=== PATIENT | male | born 1975 | race Caucasian/White ===

== ENCOUNTER 2017-11-05 18:51 | Inpatient (IN) ==
--- OUTSIDE RECORDS SUMMARY | 2017-11-05 19:16 | External Medical Summary | Encounter Summary ---
:1975 Author Organization [facility] Address [address] [address] Care Team Providers Name Role Phone Blake Wilkinson MD Primary Care Provider Unavailable Encounter Details Date Type Department Care Team Description 09/18/2017 Lab Visit [facility] Laboratory - Chronic myeloid leukemia [place] ([facility]) [address] [place] [address] Social History Tobacco Use Types Packs/Day Years Used Date Former Smoker Smokeless Tobacco: Never Used Comments: Smoking History Packs/day: Daily/Cigarettes/6 cigarettes Alcohol Use Drinks/Week oz/Week Comments Yes 6 pack of beer/month Sex Assigned at Date Recorded Not on file as of this encounter Plan of Treatment Upcoming Encounters Date Type Specialty Care Team Description 12/13/2017 Office Visit Internal Medicine Blake Wilkinson MD [address] [address] as of this encounter Results Vitamin D2/D3 Total (09/16/2017 4:25 PM) Component Value Ref Range Vitamin D2/D3 Total 16 (L) 30 - 100 ng/ml Specimen Performing Laboratory Blood [facility] [address] [place] [address] Narrative < 20 ng/mL Deficiency 20- 30 ng/mL Insufficiency 30-100 ng/mL Sufficiency > 100ng/mL Consider toxicity Thereference range for total Vitamin D, 25-Hydroxy is based on correlation with parameters that include PTH concentration and calcium absorption.The range is not based on the distribution of levels in an apparently healthy population. Please note new methodology and reference range. in this encounter Visit Diagnoses Diagnosis Chronic myeloid leukemia (HCC) Chronic myeloid leukemia, without mention of having achieved remission
--- OUTSIDE RECORDS SUMMARY | 2017-11-05 19:16 | External Medical Summary | Encounter Summary ---
:1975 Author Organization [facility] Address [address] [address] Care Team Providers Name Role Phone Blake Wilkinson MD Primary Care Provider Unavailable Encounter Details Date Type Department Care Team Description 10/11/2017 Orders Only MULTIPLE TESTS Link, Onbase [place], [place] Social History Tobacco Use Types Packs/Day Years [...] Internal Medicine Blake Wilkinson MD [address] [place] [address] Pending Results Name Priority Associated Diagnoses Date/Time HM EXTERNAL ULTRASOUND 10/01/2017 12:00 AM CDT as of this encounter Visit Diagnoses Not on filein this encounter
--- OUTSIDE RECORDS SUMMARY | 2017-11-05 19:16 | External Medical Summary | Encounter Summary ---
:1975 Author Organization [facility] Address [address] [address] Care Team Providers Name Role Phone Blake Wilkinson MD Primary Care Provider Unavailable Reason for Visit Reason Comments Medication Refill Encounter Details Date Type Department Care Team Description 10/15/2017 Refill Cotton O`Eh Internal Blake Wilkinson Medication Refill Medicine - [place] Armendariz MD [address] [place] [address] [place] [address] [phone] Social History Tobacco Use Types Packs/Day Years [...] Medicine Blake Wilkinson MD [address] [place] [address] [phone] as of this encounter Visit Diagnoses Not on filein this encounter
--- OUTSIDE RECORDS SUMMARY | 2017-11-05 19:16 | External Medical Summary | Encounter Summary ---
:1975 Author Organization [facility] Address [address] [address] Care Team Providers Name Role Phone Blake Wilkinson MD Primary Care Provider Unavailable Encounter Details Date Type Department Care Team Description 09/20/2017 Orders Only [facility] Lab[facility] Leukemia, chronic Laboratory - [place] myelogenous (HCC) [address] (Primary Dx) [place] [address] Social History Tobacco Use Types Packs/Day [...] Blake Wilkinson MD [address] [address] Scheduled Tests Name Priority Associated Diagnoses Order Schedule CBC and differential Routine Leukemia, chronic myelogenous Expected: 2017, (HCC) Expires: 10/04/2018 as of this encounter Results CBC and differential (10/18/2017 1:31 PM) Specimen Performing Laboratory Blood Narrative The following orders were created for panel order CBC and differential. Procedure Abnormality Status --------- ------ CBC auto differential[[id number]]NormalFinal result Please view results for these tests on the individual orders. in this encounter Visit Diagnoses Diagnosis Leukemia, chronic myelogenous (HCC) - Primary Chronic myeloid leukemia, without mention of having achieved remission
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
--- OUTSIDE RECORDS SUMMARY | 2017-11-05 19:16 | External Medical Summary | Encounter Summary ---
:1975 Author Organization [facility] Address [address] [address] Care Team Providers Name Role Phone Blake Wilkinson MD Primary Care Provider Unavailable Encounter Details Date Type Department Care Team Description 09/23/2017 Orders Only Cotton Nessa`Eh Internal Blake Wilkinson Low vitamin D level Medicine - [place] Armendariz MD (Primary Dx) [address] [place] [address] [address] [place] [id number] Social History Tobacco Use Types Packs/Day Years [...] MD [address] [place] [address] [phone] Scheduled Tests Name Priority Associated Diagnoses Order Schedule Vitamin D2/D3 Total Routine Low vitamin D level Expected: 12/23/2017 ( Approximate), Expires: 11/23/2018 as of this encounter Visit Diagnoses Diagnosis Low vitamin D level - Primary
--- OUTSIDE RECORDS SUMMARY | 2017-11-05 19:16 | External Medical Summary | Encounter Summary ---
:1975 Author Organization [facility] Address [address] [address] Care Team Providers Name Role Phone Blake Wilkinson MD Primary Care Provider Unavailable Reason for Visit Reason Comments Question Encounter Details Date Type Department Care Team Description 11/05/2017 Telephone Newton Shrestha Internal Blake Wilkinson, Question Medicine - [place] HAMMER [address] [place] [address] [place] [id number] Social History Tobacco Use Types Packs/Day Years [...] [address] [place] [id number] as of this encounter Visit Diagnoses Not on filein this encounter
--- OUTSIDE RECORDS SUMMARY | 2017-11-05 19:16 | External Medical Summary | Encounter Summary ---
:1975 Author Organization [facility] Address [address] [address] Care Team Providers Name Role Phone Blake Wilkinson MD Primary Care Provider Unavailable Encounter Details Date Type Department Care Team Description 10/18/2017 Lab Visit [facility] Laboratory - Leukemia, chronic [place] myelogenous (HCC) [address] [place] [address] Social History Tobacco Use Types Packs/Day [...] Medicine Blake Wilkinson MD [address] [address] as of this encounter Results CBC auto differential (10/18/2017 1:31 PM) Component Value Ref Range WBC 6.0 3.5 [...] - 0.30 10E9/L Specimen Performing Laboratory Blood [facility] [address] [place] [address] CBC and differential (10/18/2017 1:31 PM) Specimen Performing Laboratory Blood Narrative The following orders were created for panel order CBC and differential. Procedure Abnormality Status --------- ------ CBC auto differential[[id number]]NormalFinal result Please view results for these tests on the individual orders. in this encounter Visit Diagnoses Diagnosis Leukemia, chronic myelogenous (HCC) Chronic myeloid leukemia, without mention of having achieved remission
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
--- OUTSIDE RECORDS SUMMARY | 2017-11-05 19:17 | External Medical Summary | Encounter Summary ---
:1975 Author Organization [facility] Address [address] [address] Care Team Providers Name Role Phone Blake Wilkinson MD Primary Care Provider Unavailable Encounter Details Date Type Department Care Team Description 09/02/2017 Lab Visit [facility] [address] [place] [address] Social History Tobacco Use Types [...] Medicine Blake Wilkinson MD [address] [facility] [address] [place] [address] as of this encounter Results CBC auto differential (09/02/2017 1:05 PM) Component Value Ref Range WBC 7.6 3.5 - 10.5 10E9/L RBC 4.90 4.32 - 5.72 10E12/L Hemoglobin 14.5 13.5 - 17.5 g/dL Hematocrit 44.3 38.8 - 50.0 % MCV 90.5 81.2 - 95.1 fL MCH 29.5 26.0 - 34.0 pg MCHC 32.6 31.0 - 37.0 g/dL RDW 13.1 11.8 - 15.6 % Platelets 309 150 - 450 10E9/L Neutrophils % 83.7 (H) 40.0 - 75.0 % Lymphocytes % 12.5 (L) 22.0 - 49.0 % Monocytes % 3.5 2.0 - 9.0 % Eosinophils % 0.1 <=5.0 % Basophils % 0.2 0.0 - 2.5 % Neutrophils Absolute 6.40 1.70 - 7.00 10E9/L Lymphocytes Absolute 0.90 0.90 - 2.90 10E9/L Monocytes Absolute 0.30 0.30 - 0.90 10E9/L Absolute Eosinophils 0.00 (L) 0.05 - 0.50 10E9/L Basophils Absolute 0.00 0.00 - 0.30 10E9/L Specimen Performing Laboratory Blood [facility] [address] [facility] [address] [place] [address] Comprehensive metabolic panel (09/02/2017 1:05 PM) Component Value Ref Range Albumin 3.3 (L) 3.4 - 5.0 g/dL Alkaline Phosphatase 89 46 - 116 U/L ALT 60 16 - 63 U/L AST 43 (H) 15 - 37 U/L Total Bilirubin 0.2 0.2 - 1.0 mg/dL BUN, Bld 15 7 - 18 mg/dL Calcium 8.5 (L) 8.8 - 10.1 mg/dL Chloride 103 98 - 107 mmol/L Creatinine 1.15 0.70 - 1.30 mg/dL Glucose 226 (H) 74 - 106 mg/dL Potassium 3.7 3.5 - 5.1 mmol/L Total Protein 7.1 6.4 - 8.2 g/dL Sodium 140 136 - 145 mmol/L CO2 28 21 - 32 mmol/L Anion Gap 9 eGFR >59 >59 mL/min Specimen Performing Laboratory Blood [facility] [address] [facility] [address] [place] [address] CBC and differential (09/02/2017 1:05 PM) Specimen Performing Laboratory Blood Narrative The following orders were created for panel order CBC and differential. Procedure Abnormality Status --------- ------ CBC auto differential[[id number]]Abnormal Final result Please view results for these tests on the individual orders. Influenza A/B Antigens, Rapid (09/02/2017 1:00 PM) Component Value Ref Range Influenza A Antigen Test Negative Negative Influenza B Antigen Test Negative Negative Specimen Performing Laboratory Nasopharyngeal - Nasopharyngeal Swab [facility] [address] [place] [address] [place] [address] in this encounter Visit Diagnoses Diagnosis Weakness Other malaise and fatigue
--- OUTSIDE RECORDS SUMMARY | 2017-11-05 19:17 | External Medical Summary | Encounter Summary ---
:1975 Author Organization [facility] Address [address] [address] Care Team Providers Name Role Phone Blake Wilkinson MD Primary Care Provider Unavailable Reason for Visit Reason Comments Progress Report Encounter Details Date Type Department Care Team Description 09/02/2017 Telephone Newton Shrestha Internal Blake Wilkinson Progress Report Medicine - [place] Armendariz MD [address] [facility] [address] [address] [place], [place] [address] Social History Tobacco Use Types Packs/Day Years [...] Blake Wilkinson MD [address] [facility] [address] [place] [address] [phone] as of this encounter Results Comprehensive metabolic panel (09/02/2017 1:05 PM) Component [...] mL/min Specimen Performing Laboratory Blood [facility] [address] [facility] [address] [place] [address] CBC and differential (09/02/2017 1:05 PM) Specimen Performing Laboratory Blood Narrative The following orders were created for panel order CBC and differential. Procedure Abnormality Status --------- ------ CBC auto differential[[id number]]Abnormal Final result Please view results for these tests on the individual orders. Influenza A/B Antigens, Rapid (09/02/2017 1:00 PM) Component Value Ref Range Influenza A Antigen Test Negative Negative Influenza B Antigen Test Negative Negative Specimen Performing Laboratory Nasopharyngeal - Nasopharyngeal Swab [facility] [address] [facility] [address] [place] [address] in this encounter Visit Diagnoses Diagnosis Weakness - Primary Other malaise and fatigue
--- OUTSIDE RECORDS SUMMARY | 2017-11-05 19:17 | External Medical Summary | Encounter Summary ---
:1975 Author Organization [facility] Address [address] [address] Care Team Providers Name Role Phone Blake Wilkinson MD Primary Care Provider Unavailable Reason for Visit Reason Comments Cough Fatigue Shortness of Breath Encounter Details Date Type Department Care Team Description 09/06/2017 Office Visit Blake Hendricks Lower respiratory infection; Internal Medicine - [place] Marcello Moderate persistent extrinsic asthma without complication [place] [address] [place] [address] [place] [address] [place] [address] [phone] Social History Tobacco Use Types Packs/Day Years Used Date Former Smoker Smokeless Tobacco: Never Used Comments: Smoking History Packs/day: Daily/Cigarettes/6 cigarettes Alcohol Use Drinks/Week oz/Week Comments Yes 6 pack of beer/month Sex Assigned at Date Recorded Not on file as of this encounter Last Filed Vital Signs Vital Sign Reading Time Taken Blood Pressure 128/80 09/06/2017 8:38 AM CDT Pulse 75 09/06/2017 8:38 AM CDT Temperature 37.1 C (98.8 F) 09/06/2017 8:38 AM CDT Respiratory Rate 18 09/06/2017 8:38 AM CDT Oxygen Saturation 98% 09/06/2017 8:38 AM CDT Inhaled Oxygen Concentration - - Weight 90.7 kg (200 lb) 09/06/2017 8:38 AM CDT Height 180.3 cm (5' 11") 09/06/2017 8:38 AM CDT Body Mass Index 27.89 09/06/2017 8:38 AM CDT in this encounter Progress Notes Blkae Wilkinson MD - 09/06/2017 8:30 AM CDTFormatting of this note may be different from the original. [facility] [address] [place] [address] 09/06/2017 Patient: Jann Hernandez : 1975 Primary Care Provider: Blake Wilkinson MD Subjective Chief Complaint Patient presents with Cough Fatigue Shortness of Breath Jann is a 41 y.o. male who had concerns including Cough; Fatigue; and Shortness of Breath. Cough This patient was seen, 08/30/17 with: The current episode started in the past 7 days. The problem hasbeen gradually worsening. The problem occurs every few minutes. The cough is productive of purulent sputum. Associated symptoms include chest pain, a fever, nasal congestion, postnasal drip, a sore throat and shortness of breath. Treatments tried: steroids. The treatment provided no relief. His past medical history is significant for asthma. He is here for follow-up today. He still has no energy. He still feels like he is struggling to breathe. He has not had a fever in 5 days. He continues to cough up white-yellow sputum. He finishesthe augmentin on Saturday and prednisone on Saturday. He felt better after IVF but then ill again the next day. His flu swab was negative. Outpatient Prescriptions Marked as Taking for the 09/06/17 encounter (Office Visit) with Blake Wilkinson MD Medication Sig albuterol (PROAIR HFA) 108 (90 BASE) MCG/ACT inhaler inhale 2 puff by inhalation route every 4 - 6 hours for breathing amoxicillin-clavulanate (AUGMENTIN) 875-125 MG Take 1 tablet by mouth 2 (two ) times daily. budesonide-formoterol (SYMBICORT) 160-4.5 MCG/ACT inhaler Inhale 2 [...] tablet Take 10 mg by mouth daily. predniSONE (DELTASONE) 10 MG tablet Take 40 mg X 3 days, then 30 mg X 3 days , then 20 mg X 3 days, then 10 mg X 3 days. #30 Allergies Allergen Reactions Doxycycline Monohydrate GI distress DOXYCYCLINE Past Medical History: Diagnosis Date Anxiety Escitalopram restarted, 07/25/09. He is doing well on it currently. Wellbutrin did not work. Effexor did not help. Asthma Cat allergies Chronic myeloid leukemia in remission ([facility]) 04/29/2005 Chronic Myelogenous Leukemia. Dx 05/09/05 by bone marrow biopsy by Dr. Baer. In remission on gleevec. CML (chronic myelocytic leukemia) ([facility]) Gleevec since 2004 Depression Encounter for other specified special examinations [id number] - [facility]: Viral gastroenteritis, Dehydration, resolved, Nausea and vomiting, [...] this time. RBBB (right bundle branch block) Patient's medications, allergies, past medical, surgical, social and family histories were reviewed and updated as appropriate. Review of Systems Constitutional: Positive for activity change, appetite change and fatigue. Negative for fever and unexpected weight change. Respiratory: Positive for cough, chest tightness and shortness of breath. Cardiovascular: Negative for leg swelling. Objective Visit Vitals BP 128/80 Pulse 75 Temp 98.8 F (37.1 C) Resp 18 Ht 5' 11" (1.803 m) Wt 200 lb (90.7 kg) SpO2 98% BMI 27.89 kg/m Physical Exam Constitutional: He is oriented to person, place, and time. He appears well- developed and well-nourished. HENT: Head: Atraumatic. Right Ear: External ear normal. Left Ear: External ear normal. Nose: No mucosal edema. Mouth/Throat: Mucous membranes are normal. Posterior oropharyngeal erythema present. No oropharyngeal exudate or posterior oropharyngeal edema. Neck: Normal range of motion. Neck supple. Cardiovascular: Normal rate, regular rhythm and normal heart sounds. Pulmonary/Chest: Effort normal. No respiratory distress. He has no wheezes. Neurological: He is alert and oriented to person, place, and time. Assessment/Plan 1. Lower respiratory infection Assessment & Plan: He has not improved clinically. His lab has been negative including flu swab. If not better next week, reimage chest and check mono, CMV. 2. Moderate persistent extrinsic asthma without complication Assessment & Plan: He will continue inhalers. Return call with progress on Saturday. Blake Wilkinson MD Electronic Signature 09/06/2017 9:01 AM Taiwo Dasilva MA - 09/06/2017 8:30 AM CDTPt went and did the IV fluids. He felt awesome after that and his sore throat went away and his chest felt better. When he woke up he felt worse. He feels like his breathing is labored and still has a lot of phlegm and no energy. He has not had a fever for 5 days. He is done w/ the antibiotic Saturday and will be done w/ the prednisone on Saturday. He has been using Claritin. He has been drinking water and Gatorade. He has been using the inhalers. Pt has had the chicken pox. Says he is due for the chicken pox shot.in this encounter Plan of Treatment Upcoming Encounters Date Type Specialty Care Team Description 12/13/2017 Office Visit Internal Medicine Blake Wilkinson MD [address] [place] [address] [place] [address] as of this encounter Visit Diagnoses Diagnosis Lower respiratory infection Other diseases of respiratory system, not elsewhere classified Moderate persistent extrinsic asthma without complication
--- OUTSIDE RECORDS SUMMARY | 2017-11-05 19:17 | External Medical Summary | Encounter Summary ---
:1975 Author Organization [facility] Address [address] [address] Care Team Providers Name Role Phone Blake Wilkinson MD Primary Care Provider Unavailable Encounter Details Date Type Department Care Team Description 09/16/2017 Orders Only On License Of [facility] Trish Laboy Chronic myeloid leukemia (HCC) (Primary Dx); Laboratory - [place] Chronic myeloid leukemia in remission (HCC) [address] [place] [address] Social History Tobacco Use Types Packs/Day [...] Medicine Blake Wilkinson MD [address] [address] as of this encounter Results Comprehensive metabolic panel (09/16/2017 4:28 PM) Component Value Ref Range Albumin 3.7 3.4 [...] >59 >59 mL/min Specimen Performing Laboratory Blood [facility] [address] [place] [address] [place] [address] CBC and differential (09/16/2017 4:28 PM) Specimen Performing Laboratory Blood Narrative The following orders were created for panel order CBC and differential. Procedure Abnormality Status --------- ------ CBC auto differential[[id number]]Abnormal Final result Please view results for these tests on the individual orders. in this encounter Visit Diagnoses Diagnosis Chronic myeloid leukemia (HCC) - Primary Chronic myeloid leukemia, without mention of having achieved remission Chronic myeloid leukemia in remission (HCC) Chronic myeloid leukemia in remission
--- OUTSIDE RECORDS SUMMARY | 2017-11-05 19:17 | External Medical Summary | Continuity of Care Document ---
:1975 Author Organization [facility] Address [address] [place] [address] Care Team Providers Name Role Phone Zoey Wilkinson Primary Care Physician Víctor Mccracken Attending Physician Allergies, Adverse Reactions, Alerts Allergen Type Severity Reaction Last Updated Verified Status doxycycline Adverse Reaction Unknown GI DISTRESS May 23, 2017 N Active Medications No medication information available. Problem List No problem information available. Procedures Procedure Date Status US abdomen limited October 01, 2017 completed Relevant Diagnostic Tests and/or Laboratory Data No known relevant diagnostic tests, laboratory data, and/or discharge summary. Advance Directives Advance Directive Response Recorded Date/Time Advance Directive on File? GIVEN June 13, 2017 3:52pm Chief Complaint and Reason for Visit Encounter Admit Date Chief Complaint Reason for Visit Departed Clinical October 01, 2017 8:37am chronic myelogenous leukemia Hospital Discharge Instructions No known hospital discharge instructions. Encounters Encounter Facility Location Admit/Visit Discharge/Departure Attending Date Date Provider Departed [facility] October 01, 2017 October 01, 2017 8:38am [facility] 8:37am [facility] Departed [facility] September 30, 2017 September 30, 2017 3:35pm [facility] 3:34pm [facility] Functional Status No known functional status. Immunizations No known immunizations. Payers Payer Name Policy Type Covered Covered Relationship Subscriber Subscriber Id Green Party Green Party Id [employer] [id number] [facility] Self Pay Plan of Care No Known Plan of Care Information Social History No known social history. Vital Signs No known vital signs results.
--- OUTSIDE RECORDS SUMMARY | 2017-11-05 19:17 | External Medical Summary | Encounter Summary ---
:1975 Author Organization [facility] Address [address] [address] Care Team Providers Name Role Phone Blake Wilkinson MD Primary Care Provider Unavailable Encounter Details Date Type Department Care Team Description 09/18/2017 Orders Only Cotton O`Eh Internal Blake Wilkinson Chronic myeloid Medicine - [place] Armendariz MD leukemia (HCC) [address] (Primary Dx) [place] [address] [address] [place], [place] [id number] Social History Tobacco Use Types Packs/Day Years [...] MD [address] [place], [place] [id number] as of this encounter Results Vitamin D2/D3 Total (09/16/2017 4:25 PM) Component Value Ref Range Vitamin D2/D3 Total 16 (L) 30 - 100 ng/ml Specimen Performing Laboratory Blood [facility] [address] [place] [address] Narrative < 20 ng/mL Deficiency 20- 30 [...]
--- OUTSIDE RECORDS SUMMARY | 2017-11-05 19:17 | External Medical Summary | Encounter Summary ---
:1975 Author Organization [facility] Address [address] [address] Care Team Providers Name Role Phone Blake Wilkinson MD Primary Care Provider Unavailable Reason for Visit Reason Comments Clarification On Medication Cecilia at pharmacy needs help with prescription Encounter Details Date Type Department Care Team Description 08/28/2017 Nurse Triage [facility] Elisa Carrion Connect RN [address] [address] Social History Tobacco Use Types Packs/Day Years Used Date Former Smoker Smokeless Tobacco: Never Used Comments: Smoking History Packs/day: Daily/Cigarettes/6 cigarettes Alcohol Use Drinks/Week oz/Week Comments No Sex Assigned at Date Recorded Not on file as of this encounter Progress Notes Elisa Carrino RN - 08/28/2017 6:39 PM CDTFormatting of this note may be different from the original. Pharmacist Ceciila kendall, states patient was expecting a rx. They did not have one sent to pharmacy today. Per chart review" Conversation: Cough (Newest Message First) Blake Wilkinson MD to Shona Pinon RN 08/28/17 3:55 PM Note He can see Romy Danutather or I can have him take Prednisone 40mg po every day x 3 days then 30mg po every day x 3 days then 20 mg po every day x 3 days then 10 mg po every day x 3 days." [address] Irene Wilkinson / Juancarlos Carrion RN. Rx called into in [place]. Spoke with Cecilia [facility], Who verbally verifies rx. Dispensed 10 mg tabs. #30.in this encounter Plan of Treatment Upcoming Encounters Date Type Specialty Care Team Description 12/13/2017 Office Visit Internal Medicine Blake Wilkinson MD [address] [place] [address] as of this encounter Visit Diagnoses Not on filein this encounter
--- OUTSIDE RECORDS SUMMARY | 2017-11-05 19:17 | External Medical Summary | Encounter Summary ---
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) [address] [place] [address] Social History Tobacco Use Types [...] Medicine Blake Wilkinson MD [address] [place] [address] as of this encounter Results CBC auto differential (09/16/2017 4:28 PM) Component Value Ref Range WBC 7.7 3.5 - 10.5 10E9/L RBC 4.57 4.32 - 5.72 10E12/L Hemoglobin 13.4 (L) 13.5 - 17.5 g/dL Hematocrit 41.0 38.8 - 50.0 % MCV 89.8 81.2 - 95.1 fL MCH 29.4 26.0 - 34.0 pg MCHC 32.8 31.0 - 37.0 g/dL RDW 13.3 11.8 - 15.6 % Platelets 289 150 - 450 10E9/L Neutrophils % 59.1 40.0 - 75.0 % Lymphocytes % 28.3 22.0 - 49.0 % Monocytes % 10.3 (H) 2.0 - 9.0 % Eosinophils % 1.3 <=5.0 % Basophils % 1.0 0.0 - 2.5 % Neutrophils Absolute 4.50 1.70 - 7.00 10E9/L Lymphocytes Absolute 2.20 0.90 - 2.90 10E9/L Monocytes Absolute 0.80 0.30 - 0.90 10E9/L Absolute Eosinophils 0.10 0.05 - 0.50 10E9/L Basophils Absolute 0.10 0.00 - 0.30 10E9/L Specimen Performing Laboratory Blood [facility] [address] [address] Comprehensive metabolic panel (09/16/2017 4:28 PM) Component [...] [facility] [address] [facility] [address] [place] [address] CBC and differential (09/16/2017 4:28 PM) Specimen Performing Laboratory Blood Narrative The following orders were created for panel order CBC and differential. Procedure Abnormality Status --------- ------ CBC auto differential[[id number]]Abnormal Final result Please view results for these tests on the individual orders. EXTRA SST TUBE (09/16/2017 4:25 PM) Component Value Ref Range EXTRA TUBE Extra tube in lab Specimen Performing Laboratory Blood [facility] [address] [place] [address] Extra Tubes (09/16/2017 4:25 PM) Specimen Performing Laboratory Blood Narrative The following orders were created for panel order Extra Tubes. Procedure Abnormality Status --------- ------ EXTRA SST TUBE[[id number]] Final result Please view results for these tests on the individual orders. in this encounter Visit Diagnoses Diagnosis Chronic myeloid leukemia (HCC) Chronic myeloid leukemia, without mention of having achieved remission Chronic myeloid leukemia in remission (HCC) Chronic myeloid leukemia in remission
--- OUTSIDE RECORDS SUMMARY | 2017-11-05 19:17 | External Medical Summary | Encounter Summary ---
:1975 Author Organization [facility] Address [address] [address] Care Team Providers Name Role Phone Blake Wilkinson MD Primary Care Provider Unavailable Reason for Visit Reason Comments Progress Report Letter for School/Work Encounter Details Date Type Department Care Team Description 09/09/2017 Telephone [facility] Szymanski[facility]Eh Internal Blake Wilkinson Progress Report ; Letter Medicine - [place] Armendariz MD for School/Work [address] [facility] [place] [address] [address] [place] [id number] Social History Tobacco Use Types Packs/Day Years [...] [address] [facility] [address] [place] [address] [phone] as of this encounter Visit Diagnoses Not on filein this encounter
--- OUTSIDE RECORDS SUMMARY | 2017-11-05 19:17 | External Medical Summary | Encounter Summary ---
:1975 Author Organization [facility] Address [address] [address] Care Team Providers Name Role Phone Blake Wilkinson MD Primary Care Provider Unavailable Encounter Details Date Type Department Care Team Description 09/03/2017 Orders Only Cotton O`Eh Internal Blake Wilkinson Medicine - [place] Armendariz MD [address] [place] [address] [place] [address] [phone] Social History Tobacco Use Types Packs/Day Years [...] MD [address] [place], [place] [address] as of this encounter Visit Diagnoses Not on filein this encounter
--- OUTSIDE RECORDS SUMMARY | 2017-11-05 19:17 | External Medical Summary | Encounter Summary ---
:1975 Author Organization [facility] Address [address] [address] Care Team Providers Name Role Phone Blake Wilkinson MD Primary Care Provider Unavailable Reason for Visit Reason Comments Shortness of Breath Cough Productive Sore Throat Encounter Details Date Type Department Care Team Description 08/30/2017 Office Visit [facility] Szymanski[facility] Internal Blake Wilkinson Acute URI Medicine - [place] Armendariz MD [address] [place] [address] [place] [address] [phone] Social History Tobacco Use Types Packs/Day Years Used Date Former Smoker Smokeless Tobacco: Never Used Comments: Smoking History Packs/day: Daily/Cigarettes/6 cigarettes Alcohol Use Drinks/Week oz/Week Comments Yes 6 pack of beer/month Sex Assigned at Date Recorded Not on file as of this encounter Last Filed Vital Signs Vital Sign Reading Time Taken Blood Pressure 132/80 08/30/2017 1:21 PM CDT Pulse 84 08/30/2017 1:21 PM CDT Temperature 37.1 C (98.8 F) 08/30/2017 1:21 PM CDT Respiratory Rate 18 08/30/2017 1:21 PM CDT Oxygen Saturation 96% 08/30/2017 1:21 PM CDT Inhaled Oxygen Concentration - - Weight 91.1 kg (200 lb 14.4 oz) 08/30/2017 1:21 PM CDT Height 180.3 cm (5' 11") 08/30/2017 1:21 PM CDT Body Mass Index 28.02 08/30/2017 1:21 PM CDT in this encounter Progress Notes Blake Wilkinson MD - 08/30/2017 1:15 PM CDTFormatting of this note may be different from the original. [facility] [address] [place] [address] 08/30/2017 Patient: Jann Hernandez : 1975 Primary Care Provider: Blake Wilkinson MD Subjective Chief Complaint Patient presents with Shortness of Breath Cough Productive Sore Throat Jann is a 41 y.o. male who had concerns including Shortness of Breath; Cough ( Productive); and Sore Throat. Cough This is a new problem. The current episode started in the past 7 days. The problem has been gradually worsening. The problem occurs every few minutes. The cough is productive of purulent sputum. Associated symptoms include chest pain, a fever, nasal congestion, postnasal drip, a sore throat and shortness of breath. Treatments tried: steroids. The treatment provided no relief. His past medical historyis significant for asthma. Outpatient Prescriptions Marked as Taking for the 08/30/17 encounter (Office Visit ) with Blake Wilkinson MD Medication Sig albuterol (PROAIR HFA) 108 (90 BASE) MCG/ACT inhaler inhale 2 puff by inhalation route every 4 - 6 hours for breathing budesonide-formoterol (SYMBICORT) 160-4.5 MCG/ACT inhaler Inhale 2 puffs into the lungs 2 (two) times daily. escitalopram (LEXAPRO) 20 MG tablet TAKE 1 TABLET BY MOUTH DAILY ibuprofen (ADVIL,MOTRIN) 200 MG tablet Take 400 mg by mouth every 6 (six) hours as needed for Mild Pain. loratadine (CLARITIN) 10 MG tablet Take 10 mg by mouth daily. ondansetron (ZOFRAN) 4 MG tablet Take 1 tablet (4 mg total) by mouth every 8 (eight) hours as needed for Nausea. Zniovvwnj-BDL-EX-Aspirin (MIGUEL-SELTZER PLUS COLD & COUGH) 7.8-2-10-325 MG TBEF Take 2 tablets by mouth every 4 (four) hours as needed. predniSONE (DELTASONE) 10 MG tablet Take 40 [...] Cat allergies Chronic myeloid leukemia in remission ([facility]) 04/29/2005 Chronic Myelogenous Leukemia. Dx 05/09/05 by bone marrow biopsy by Dr. Baer. In remission on gleevec. CML (chronic myelocytic leukemia) ([facility]) Gleevec since 2004 Depression Encounter for other specified special examinations [id number] - [facility]: Viral gastroenteritis, Dehydration, resolved, Nausea and vomiting, [...] for fatigue and fever. HENT: Positive for postnasal drip and sore throat. Respiratory: Positive for cough and shortness of breath. Cardiovascular: Positive for chest pain. Objective Visit Vitals BP 132/80 Pulse 84 Temp 98.8 F (37.1 C) (Oral) Resp 18 Ht 5' 11" (1.803 m) Wt 200 lb 14.4 oz (91.1 kg) SpO2 96% BMI 28.02 kg/m Physical Exam Constitutional: He is oriented to person, place, and time. He appears well- developed and well-nourished. HENT: Head: Normocephalic and atraumatic. Right Ear: External ear normal. Tympanic membrane is injected. A middle ear effusion is present. Left Ear: External ear normal. Tympanic membrane is injected. A middle ear effusion is present. Nose: Mucosal edema and rhinorrhea present. Right sinus exhibits no maxillary sinus tenderness and no frontal sinus tenderness. Left sinus exhibits no maxillary sinus tenderness and no frontal sinus tenderness. Mouth/Throat: Mucous membranes are normal. Posterior oropharyngeal erythema present. No oropharyngeal exudate. Neck: Normal range of motion. Neck supple. Cardiovascular: Normal rate, regular rhythm and normal heart sounds. Pulmonary/Chest: Effort normal and breath sounds normal. No respiratory distress. Neurological: He is alert and oriented to person, place, and time. Skin: Skin is warm and dry. Assessment/Plan 1. Acute URI Assessment & Plan: It does seem viral. He is worried about not taking something. His son is taking augmentin. He hashistory of CML. Orders: - amoxicillin-clavulanate (AUGMENTIN) 875-125 MG; Take 1 tablet by mouth 2 ( two) times daily. - hydrocodone-chlorpheniramine (TUSSIONEX) 10-8 MG/5ML suspension; Take 5 mLs by mouth every 12 (twelve) hours as needed (cough). Do not exceed a daily dose of 10 mLs Weight management: BMI is higher than normal limit, discussion with the patient of a plan to lower BMI through a combination of healthy eating and increase in exercise and activity. Return if symptoms worsen or fail to improve. Blake Wilkinson MD Electronic Signature 08/30/2017 1:37 PM Shona Pinon RN - 08/30/2017 1:15 PM CDTPatient presents with complaints of a sore throat, productive cough with gillespie/yellow/white sputum and shortness of breath. He is complaining of pain in his chest when he coughs or takes a deep breath. He started Prednisone . He has not followed the directions on the Prednisone, he took 2 tablets on Saturday night, then one tablet four times daily yesterday and has had two tablets today.He did have some vivid nightmares last night. He thought bugs were crawling and biting him.in this encounter Plan of Treatment Upcoming Encounters Date Type Specialty Care Team Description 12/13/2017 Office Visit Internal Medicine Blake Wilkinson MD [address] [facility] [address] [place] [address] as of this encounter Visit Diagnoses Diagnosis Acute URI Acute upper respiratory infections of unspecified site
--- OUTSIDE RECORDS SUMMARY | 2017-11-05 19:17 | External Medical Summary | Encounter Summary ---
:1975 Author Organization [facility] Address [address] [address] Care Team Providers Name Role Phone Blake Wilkinson MD Primary Care Provider Unavailable Reason for Visit Reason Comments Shortness of Breath Encounter Details Date Type Department Care Team Description 09/03/2017 Telephone Newton Szymanski`Eh Internal Blake Wilkinson Shortness of Breath Medicine - [place] Armendariz MD [address] [facility] [place] [address] [address] [place] [id number] Social History Tobacco Use Types Packs/Day Years [...] MD [address] [place] [address] [phone] as of this encounter Visit Diagnoses Not on filein this encounter
--- OUTSIDE RECORDS SUMMARY | 2017-11-05 19:17 | External Medical Summary | Encounter Summary ---
:1975 Author Organization [facility] Address [address] [address] Care Team Providers Name Role Phone Blake Wilkinson MD Primary Care Provider Unavailable Reason for Visit Reason Comments Cough Nonproductive Sore Throat Shortness of Breath Headache Encounter Details Date Type Department Care Team Description 08/28/2017 Telephone Cotton O`Eh Internal Blake Wilkinson Cough ( Nonproductive); Medicine - [place] Armendariz MD Sore Throat; Shortness [address] [place] of Breath; [place] [address] [address] [place], [place] [address] Social History Tobacco Use Types Packs/Day Years [...] [address] [address] [place] [address] as of this encounter Visit Diagnoses Not on filein this encounter
--- OUTSIDE RECORDS SUMMARY | 2017-11-05 19:18 | External Medical Summary | Continuity of Care Document ---
:1975 Author Organization [facility] Address [address] [place], [place] [address] [address] Care Team Providers Name Role Phone Zoey Wilkinson Primary Care Physician Jewell Sharma Rounding Physician Allergies, Adverse Reactions, Alerts Allergen Type Severity Reaction Last Updated Verified Status doxycycline Adverse Reaction Unknown GI DISTRESS May 23, 2017 N Active Medications Active Medications Medication Dose Units Route Sig Qty Start Date Status Ipratropium-Albutero 3 ML Inhalation Every 6 to 8 hours 90 November 03, 2017 Active l PRN For shortness of breath Problem List Active Problems Medical Problem Onset Date Status Fever Active Asthmatic bronchitis Active Procedures Procedure Date Status XR chest 1V November 03, 2017 active Relevant Diagnostic Tests and/or Laboratory Data Laboratory Results Test Date/Time Result Interp. Ref. Range Result Comment White Blood Count November 03, 2017 7.0 10^3/uL 4.5-11.0 5:00pm Red Blood Count November 03, 2017 4.81 10^6/uL 4.70-6.00 5:00pm Hemoglobin November 03, 2017 14.6 g/dL 13.5-17.5 5:00pm Hematocrit November 03, 2017 42.6 % 41-53 5:00pm Mean Corpuscular Volume November 03, 2017 88.5 fL 79-99 5:00pm Mean Corpuscular November 03, 2017 30.3 pg 25.0-34.0 Hemoglobin 5:00pm Mean Corpuscular November 03, 2017 34.3 g/dL 31.0-36.0 Hemoglobin Concent 5:00pm Red Cell Distribution November 03, 2017 14.0 % 11.0-15.0 Width 5:00pm Platelet Count November 03, 2017 242 10^3 uL 130-400 5:00pm Mean Platelet Volume November 03, 2017 8.8 fL 7.0-11.0 5:00pm Neutrophils % (Manual) November 03, 2017 78.0 % High 50-65 5:00pm Band Neutrophils % November 03, 2017 6.0 % 0-10 (Manual) 5:00pm Lymphocytes % (Manual) November 03, 2017 12.0 % Low 15-45 5:00pm Monocytes % (Manual) November 03, 2017 2.0 % 0-10 5:00pm Eosinophils % (Manual) November 03, 2017 1.0 % 0-5 5:00pm Basophils % (Manual) November 03, 2017 1.0 % 0-2 5:00pm Neutrophils # (Manual) November 03, 2017 5.9 # 1.0-8.0 5:00pm Lymphocytes # (Manual) November 03, 2017 0.8 # Low 1.0-3.0 5:00pm Monocytes # (Manual) November 03, 2017 0.1 # 0.0-1.0 5:00pm Eosinophils # (Manual) November 03, 2017 0.1 # 0.0-0.4 5:00pm Basophils # (Manual) November 03, 2017 0.1 # 0.0-0.2 5:00pm Sodium Level November 03, 2017 138 mmol/L 135-150 5:00pm Potassium Level November 03, 2017 3.9 mmol/L 3.4-5.2 5:00pm Chloride Level November 03, 2017 105 mmol/L 100-112 5:00pm Carbon Dioxide Level November 03, 2017 23 mEq/L 18-30 5:00pm Anion Gap November 03, 2017 10 mmol/L 8-11 5:00pm Blood Urea Nitrogen November 03, 2017 10 mg/dL 5-21 5:00pm Creatinine November 03, 2017 0.85 mg/dL 0.60-1.30 5:00pm Glomerular Filtration November 03, 2017 > 60 The GFR is not validated for use in drug dosing adjustments. Rate Calc 5:00pm mL/Min Continue to use estimated creatinine clearance per dosing reference text. Chronic Kidney Disease is defined as either kidney damage or a GFR less than 60 ml/min that persists for at least 3 months. Stage 3=30-59 ml/min Stage 4=15-29 ml/min Stage 5=<15 ml/min Glucose Level November 03, 2017 135 mg/dL High 70-99 5:00pm Calcium Level November 03, 2017 9.3 mg/dL 8.6-10.5 5:00pm Total Bilirubin November 03, 2017 0.2 mg/dL 0.0-1.2 5:00pm Aspartate Amino Transf November 03, 2017 29 U/L 6-37 (AST/SGOT) 5:00pm Alanine November 03, 2017 46 U/L 12-78 Aminotransferase 5:00pm (ALT/SGPT) Troponin I November 03, 2017 < 0.01 0.00-0.05 5:00pm ng/mL Total Protein November 03, 2017 7.0 g/dL 6.4-8.2 5:00pm Albumin November 03, 2017 3.6 g/dL 3.3-4.5 5:00pm Albumin/Globulin Ratio November 03, 2017 1.1 0.7-2.0 5:00pm Alkaline Phosphatase November 03, 2017 93 U/L 50-136 5:00pm Advance Directives Advance Directive Response Recorded Date/Time Advance Directive on File? GIVEN June 13, 2017 3:52pm Chief Complaint and Reason for Visit Encounter Admit Date Chief Complaint Reason for Visit Departed Emergency November 03, 2017 4:46pm Fever Hospital Discharge Instructions Additional Discharge Instructions Home to rest. Take the duoneb every 6-8 hours as needed. continue with the prednisone and antibiotic as prescribed. Please return to the emergency room if you have any increased wheezing, fever of 101.3 or greater, shortness of breath, or any other concern. Instruction/Education Provided Reactive Airways Disease (ED) Problem: Fever Goal: Resolution of fever. Plan: Refer to patient instructions provided. Hospital Discharge Medications Medication Dose Units Route Sig Qty Days Order Status Instructions Date Ipratropium-Al 3 ML Inhalation Every 6 to 8 90 November 03 buterol hours PRN 2017 For shortness of breath Encounters Encounter Facility Location Admit/Visit Discharge/Departure Attending Date Date Provider Departed [facility] November 03, 2017 November 03, 2017 5:59pm [facility] 4:46pm Health Functional Status No known functional status. Immunizations No known immunizations. Payers Payer Name Policy Type Covered Covered Relationship Subscriber Subscriber Id Republican Republican Id [facility] [id number] [facility] Self Pay Plan of Care Instructions Reactive Airways Disease (ED) Problem: Fever Goal: Resolution of fever. Plan: Refer to patient instructions provided. Social History Query Response Date Recorded Comment Recent Travel No November 03, 2017 5:52pm substance use type does not use November 03, 2017 5:52pm Query Response Start Date Stop Date Smoking Status Former smoker Vital Signs Vital Reading Result Reference Range Collection Date/Time Height 6 ft 1 in November 03, 2017 4:57pm Weight 195 lb November 03, 2017 4:57pm Temperature 101.1 F 97.5 F-99.5 F November 03, 2017 4:59pm Pulse 87 BPM 60-90 November 03, 2017 4:59pm Respiration 16 RPM 12-20 November 03, 2017 4:59pm Pulse Oximetry 95 % 90-100 November 03, 2017 4:59pm Blood Pressure Systolic 114 100-160 November 03, 2017 4:59pm Blood Pressure Diastolic 84 50-80 November 03, 2017 4:59pm Body Mass Index 25.7 November 03, 2017 4:57pm
--- OUTSIDE RECORDS SUMMARY | 2017-11-05 19:18 | External Medical Summary | Continuity of Care Document ---
:1975 Author Organization [facility] Address [address] [place] [address] Care Team Providers Name Role Phone Zoey Wilkinson Primary Care Physician Zoey Wilkinson Attending Physician Allergies, Adverse Reactions, Alerts Allergen Type Severity Reaction Last Updated Verified Status doxycycline Adverse Reaction Unknown GI DISTRESS May 23, 2017 N Active Medications No medication information available. Problem List No problem information available. Procedures No known history of procedures. Relevant Diagnostic Tests and/or Laboratory Data No known relevant diagnostic tests, laboratory data, and/or discharge summary. Advance Directives Advance Directive Response Recorded Date/Time Advance Directive on File? GIVEN June 13, 2017 3:52pm Hospital Discharge Instructions No known hospital discharge instructions. Encounters Encounter Facility Location Admit/Visit Discharge/Departure Attending Date Date Provider Departed [address] September 03, 2017 September 03, 2017 5:17pm Zoey Wilkinson [facility] 5:16pm Health Functional Status No known functional status. Immunizations No known immunizations. Payers Payer Name Policy Type Covered Covered Relationship Subscriber Subscriber Id Republican Republican Id [facility] [id number] [facility] Self Pay Plan of Care No Known Plan of Care Information Social History No known social history. Vital Signs Vital Reading Result Reference Range Collection Date/Time Height 6 ft 1 in September 03, 2017 5:39pm Weight 195 lb September 03, 2017 5:39pm Temperature 97.7 F 97.5 F-99.5 F September 03, 2017 10:58pm Pulse 66 BPM 60-90 September 03, 2017 10:58pm Respiration 16 RPM 12-20 September 03, 2017 10:58pm Pulse Oximetry 96 % 90-100 September 03, 2017 10:58pm Blood Pressure Systolic 141 100-160 September 03, 2017 10:58pm Blood Pressure Diastolic 77 50-80 September 03, 2017 10:58pm Body Mass Index 25.7 September 03, 2017 5:39pm
--- OUTSIDE RECORDS SUMMARY | 2017-11-05 19:18 | External Medical Summary | Continuity of Care Document ---
:1975 Author Organization [facility] Address [address] [place] [address] Care Team Providers Name Role Phone Zoey [...] Chief Complaint Reason for Visit Departed Clinical September 30, 2017 3:34pm Chronic myeloid leukemia, BCR/ABL-positive, not [facility] Discharge Instructions No known hospital discharge instructions. Encounters Encounter Facility Location Admit/Visit Discharge/Departure Attending Date Date Provider Departed [facility] September 30, 2017 September 30, 2017 [facility] Functional Status No known functional status. Immunizations No known immunizations. Payers Payer Name Policy Type Covered Covered Relationship Subscriber Subscriber Id Green Party Green Party Id [facility] [id number] [facility] Self Pay Plan of Care No Known Plan of Care Information Social History No known social history. Vital Signs No known vital signs results.
--- OUTSIDE RECORDS SUMMARY | 2017-11-05 19:18 | External Medical Summary | Continuity of Care Document ---
:1975 Author Organization [facility] Address [address] [place] [address] Care Team Providers Name Role Phone Zoey Wilkinson Primary Care Physician Jewell Sharma Rounding Physician Allergies, Adverse Reactions, Alerts Allergen Type Severity Reaction Last Updated Verified Status doxycycline Adverse Reaction Unknown GI DISTRESS November 05, 2017 Y Active Medications Active Medications Medication Dose Units Route Sig Qty Start Date Status Ipratropium-Albuterol 3 ML Inhalation Every 6 to 8 90 November 03, Active hours PRN For 2018 shortness of breath Prednisone November 042017 Tramadol November 042017 Ibuprofen 400 MG Oral Q6H PRN November 042017 Ergocalciferol (Vitamin 88293 UNIT Oral Weekly November 04, Active D2) 2017 Methylprednisolone 4 MG Oral As Directed November 042017 Hydrocodone-Chlorpheniram 5 ML Oral Every 12 Hours November 04 ine [Tussionex PRN 2018 Pennkinetic Er] Albuterol Sulfate 2 PUFF Inhalation Twice a Day PRN November 04 [Ventolin Hfa] 2017 Loratadine 10 MG Oral Daily November 042017 Amoxicillin-Pot 1 TAB Oral Twice a Day November 04 Clavulanate 2017 Escitalopram Oxalate 20 MG Oral Daily November 042017 Imatinib [Gleevec] 400 MG Oral Daily November 042017 Budesonide-Formoterol 2 PUFF Inhalation Twice a Day November 04 [Symbicort] 2018 Levofloxacin 500 MG Oral Daily 7 November 042017 Problem List Active Problems Medical Problem Onset Date Status Fever Active Fever Active Asthmatic bronchitis Active Procedures Procedure Date Status CT abd pel w IV contrast only November 05, 2017 completed Blood Culture November 05, 2017 active Group A Streptococcus Screen (AMINATA) November 04, 2017 active Blood Culture November 04, 2017 active XR chest 1V November 03, 2017 completed Blood Culture November 03, 2017 active Relevant Diagnostic Tests and/or Laboratory Data Laboratory Results Test Date/Time Result Interp. Ref. Range Result Comment White Blood Count November 05, 2017 5.7 10^3/uL 4.5-11.0 12:02pm Red Blood Count November 05, 2017 4.51 10^6/uL Low 4.70-6.00 12:02pm Hemoglobin November 05, 2017 13.6 g/dL 13.5-17.5 12:02pm Hematocrit November 05, 2017 39.9 % Low 41-53 12:02pm Mean Corpuscular November 05, 2017 88.5 fL 79-99 Volume 12:02pm Mean Corpuscular November 05, 2017 30.2 pg 25.0-34.0 Hemoglobin 12:02pm Mean Corpuscular November 05, 2017 34.2 g/dL 31.0-36.0 Hemoglobin Concent 12:02pm Red Cell Distribution November 05, 2017 14.1 % 11.0-15.0 Width 12:02pm Platelet Count November 05, 2017 197 10^3 uL 130-400 12:02pm Mean Platelet Volume November 05, 2017 9.0 fL 7.0-11.0 12:02pm Neutrophils (%) November 04, 2017 74.3 % High 43.0-72.0 (Auto) 5:51am Lymphocytes (%) November 04, 2017 16.8 % 15.0-45.0 (Auto) 5:51am Monocytes (%) (Auto) November 04, 2017 8.3 % 1.0-12.0 5:51am Eosinophils (%) November 04, 2017 0.2 % 0.0-6.0 (Auto) 5:51am Basophils (%) (Auto) November 04, 2017 0.4 % 0.0-2.0 5:51am Neutrophils # (Auto) November 04, 2017 4.2 10^3 uL 1.0-8.0 5:51am Lymphocytes # (Auto) November 04, 2017 1.0 10^3 uL 1.0-3.0 5:51am Monocytes # (Auto) November 04, 2017 0.5 10^3 uL 0.0-1.0 5:51am Eosinophils # (Auto) November 04, 2017 0.0 10^3 uL 0.0-0.4 5:51am Basophils # (Auto) November 04, 2017 0.0 10^3 uL 0.0-0.2 5:51am Neutrophils % November 03, 2017 78.0 % High 50-65 (Manual) 5:00pm Band Neutrophils % November 03, 2017 6.0 % 0-10 (Manual) 5:00pm Lymphocytes % November 03, 2017 12.0 % Low 15-45 (Manual) 5:00pm Monocytes % (Manual) November 03, 2017 2.0 % 0-10 5:00pm Eosinophils % November 03, 2017 1.0 % 0-5 (Manual) 5:00pm Basophils % (Manual) November 03, 2017 1.0 % 0-2 5:00pm Neutrophils # November 03, 2017 5.9 # 1.0-8.0 (Manual) 5:00pm Lymphocytes # November 03, 2017 0.8 # Low 1.0-3.0 (Manual) 5:00pm Monocytes # (Manual) November 03, 2017 0.1 # 0.0-1.0 5:00pm Eosinophils # November 03, 2017 0.1 # 0.0-0.4 (Manual) 5:00pm Basophils # (Manual) November 03, 2017 0.1 # 0.0-0.2 5:00pm Prothrombin Time November 04, 2017 13.2 Seconds 11.9-14.4 5:51am INR International November 04, 2017 1.02 0.89-1.13 Therapeutic Range: Normalized Ratio 5:51am Prophylaxis - Thrombosis 2.0-3.0 Mechanical Heart Valves 2.5-3.5 Myocardial Infarction 2.0-3.0 Activated Partial November 04, 2017 24.3 Seconds 23.9-34.0 Thromboplast Time 5:51am Urine Color November 04, 2017 Yellow 6:30am Urine Appearance November 04, 2017 Clear 6:30am Urine pH November 04, 2017 6.0 6:30am Urine Specific November 04, 2017 1.025 [place] 6:30am Urine Protein November 04, 2017 Trace 6:30am Urine Glucose (UA) November 04, 2017 Negative 6:30am Urine Ketones November 04, 2017 Negative 6:30am Urine Blood November 04, 2017 Negative 6:30am Urine Nitrite November 04, 2017 Negative 6:30am Urine Bilirubin November 04, 2017 Negative 6:30am Urine Urobilinogen November 04, 2017 0.2 6:30am Urine Leukocyte November 04, 2017 Negative Esterase 6:30am Urine Culture November 04, 2017 Not Indicated No Culture Reflex Ordered. Indicated 6:30am The specimen did not meet the following criteria OR contained >25 epithelials, indicating contamination. * Culture Criteria: * * * * Urinalysis Leukocyte 1+ or > * * Urinalysis Nitrates + * * Microscopic WBC 10 or > * * Microscopic Bacteria 2+ or > * * Microscopic Yeast 2+ or > * Sodium Level November 05, 2017 136 mmol/L 135-150 12:02pm Potassium Level November 05, 2017 3.7 mmol/L 3.4-5.2 12:02pm Chloride Level November 05, 2017 102 mmol/L 100-112 12:02pm Carbon Dioxide Level November 05, 2017 25 mEq/L 18-30 12:02pm Anion Gap November 05, 2017 9 mmol/L 8-11 12:02pm Blood Urea Nitrogen November 05, 2017 8 mg/dL 5-21 12:02pm Creatinine November 05, 2017 0.86 mg/dL 0.60-1.30 12:02pm Glomerular Filtration November 05, 2017 > 60 mL/Min The GFR is not validated for use in drug dosing adjustments. Rate Calc 12:02pm Continue to use estimated creatinine clearance per dosing reference text. Chronic Kidney Disease is defined as either kidney damage or a GFR less than 60 ml/min that persists for at least 3 months. Stage 3=30-59 ml/min Stage 4=15-29 ml/min Stage 5=<15 ml/min Glucose Level November 05, 2017 103 mg/dL High 70-99 12:02pm Lactic Acid Level November 04, 2017 1.4 mmol/L 0.4-2.0 9:08am Calcium Level November 05, 2017 8.7 mg/dL 8.6-10.5 12:02pm Total Bilirubin November 05, 2017 0.3 mg/dL 0.0-1.2 12:02pm Aspartate Amino November 05, 2017 69 U/L High 6-37 Delta: 32 on Transf (AST/SGOT) 12:02pm 11/04/17-0551 Alanine November 05, 2017 118 U/L High 12-78 Aminotransferase 12:02pm (ALT/SGPT) Lactate Dehydrogenase November 05, 2017 302 U/L High 103-220 12:02pm Troponin I November 03, 2017 < 0.01 0.00-0.05 5:00pm ng/mL Total Protein November 05, 2017 6.2 g/dL Low 6.4-8.2 12:02pm Albumin November 05, 2017 3.1 g/dL Low 3.3-4.5 12:02pm Albumin/Globulin November 05, 2017 1.0 0.7-2.0 Ratio 12:02pm Alkaline Phosphatase November 05, 2017 79 U/L 50-136 12:02pm Procalcitonin November 05, 2017 0.67 ng/mL High 0.00-0.10 PCT Conc. Interpretation 12:02pm < 0.5 ng/mL Low risk for progression to severe sepsis &/or shock 0.5-2.0 ng/mL Sepsis should be considered > 2.0 ng/mL High risk for progression to severe sepsis &/or shock Advance Directives Advance Directive Response Recorded Date/Time Advance Directive on File? No November 04, 2017 5:36am Chief Complaint and Reason for Visit Encounter Admit Date Chief Complaint Reason for Visit Departed Emergency November 05, 2017 9:35am weakness Hospital Discharge Instructions Additional Discharge Instructions Proceed to the Cancer Center for further testing, evaluation adn treatment. Instruction/Education Provided Fever in Adults (ED) Problem: Fever Goal: Resolution of fever. Plan: Refer to patient instructions provided. Hospital Discharge Medications Medication Dose Units Route Sig Qty Days Order Status Instructions Date Ipratropium-Albut 3 ML Inhalation Every 6 to 90 October zev 8 hours 10, PRN For 2018 shortness of breath Prednisone October Tramadol October Ibuprofen 400 MG Oral Q6H PRN October Ergocalciferol 34769 UNIT Oral Weekly October (Vitamin D2) 2017 Methylprednisolon 4 MG Oral As October e Directed 2017 Hydrocodone-Chlor 5 ML Oral Every 12 October pheniramine Hours PRN 2017 Albuterol Sulfate 2 PUFF Inhalation Twice a October Day PRN 2017 Loratadine 10 MG Oral Daily October Amoxicillin-Pot 1 TAB Oral Twice a October Clavulanate Day 2017 Escitalopram 20 MG Oral Daily October Oxalate 2017 Imatinib 400 MG Oral Daily October Budesonide-Formot 2 PUFF Inhalation Twice a October zev Day 2017 Levofloxacin 500 MG Oral Daily 7 October Encounters Encounter Facility Location Admit/Visit Discharge/Departure Attending Date Date Provider Departed [facility] November 05, 2017 November 05, 2017 3:30pm [facility] 9:35am Health Departed [facility] November 04, 2017 November 04, 2017 9:49am [facility] 5:18am Health Departed [facility] November 03, 2017 November 03, 2017 5:59pm [facility] 4:46pm Health Family History Query Response Instance Date Recorded Comment Family History unable to obtain November 05, 2017 3:04pm Functional Status No known functional status. Immunizations No known immunizations. Payers Payer Name Policy Type Covered Covered Relationship Subscriber Subscriber Id Libertarian Libertarian Id [employer] Jann Hernandez [id number] Self / Same As Jann Hernandez [id number] [employer] Self Pay Plan of Care Instructions Fever in Adults (ED) Problem: Fever Goal: Resolution of fever. Plan: Refer to patient instructions provided. Social History Query Response Date Recorded Comment Recent Travel No November 05, 2017 3:04pm household members spouse November 05, 2017 3:04pm housing house November 05, 2017 3:04pm substance use type does not use November 05, 2017 3:04pm Query Response Start Date Stop Date Smoking Status Former smoker Vital Signs Vital Reading Result Reference Range Collection Date/Time Height 6 ft 4 in November 05, 2017 9:44am Weight 195 lb November 05, 2017 9:44am Temperature 101.5 F 97.5 F-99.5 F November 05, 2017 9:40am Pulse 82 BPM 60-90 November 05, 2017 9:40am Respiration 22 RPM 12-20 November 05, 2017 9:40am Pulse Oximetry 100 % 90-100 November 05, 2017 9:40am Blood Pressure Systolic 131 100-160 November 05, 2017 9:40am Blood Pressure Diastolic 83 50-80 November 05, 2017 9:40am Body Mass Index 23.7 November 05, 2017 9:44am
--- OUTSIDE RECORDS SUMMARY | 2017-11-05 19:18 | External Medical Summary | Continuity of Care Document ---
:1975 Author Organization [facility] Address [address] [place] [address] Care Team Providers Name Role Phone Zoey [...] Admit/Visit Discharge/Departure Attending Date Date Provider Departed Telephone Laboratory September 09, 2017 September 09, 2017 9:51am [facility] 9:50am [facility] Departed Telephone 3rd Floor September 03, 2017 September 03, 2017 5:17pm Zoey Wilkinson [facility] Outpatients 5:16pm Health Functional Status No known functional status. Immunizations No known immunizations. Payers Payer Name Policy Type Covered Covered Relationship Subscriber Subscriber Id Republican Republican Id [facility] [id number] [facility] Self Pay Plan of Care No [...]
--- OUTSIDE RECORDS SUMMARY | 2017-11-05 19:18 | External Medical Summary | Continuity of Care Document ---
:1975 Author Organization [facility] Address [address] [place] [address] Care Team Providers Name Role Phone Zoey [...] Admit/Visit Discharge/Departure Attending Date Date Provider Departed [facility] June 13June 13, 2017 Caro deluca [facility] 2017 3:52pm 3:53pm [facility] Functional Status No known functional status. Immunizations No known immunizations. Payers Payer Name Policy Type Covered Covered Relationship Subscriber Subscriber Id Green Party Green Party Id [facility] [id number] [facility] Self Pay Plan of Care No Known Plan of Care Information Social History No known social history. Vital Signs No known vital signs results.
--- OUTSIDE RECORDS SUMMARY | 2017-11-05 19:18 | External Medical Summary | Continuity of Care Document ---
:1975 Author Organization [facility] Address [address] [place] [address] Care Team Providers Name Role Phone Zoey [...] Oral Q6H PRN November 042017 Ergocalciferol (Vitamin 54924 UNIT Oral Weekly November 04, Active D2) [...] Asthmatic bronchitis Active Procedures Procedure Date Status Respiratory Panel (PCR) November 04, 2017 completed Blood Culture November 04, 2017 active XR chest 1V November 03, 2017 completed Blood Culture November 03, 2017 active Relevant Diagnostic Tests and/or Laboratory Data Laboratory Results Test Date/Time Result Interp. Ref. Range Result Comment White Blood Count November 04, 2017 5.7 10^3/uL 4.5-11.0 5:51am Red Blood Count November 04, 2017 4.65 10^6/uL Low 4.70-6.00 5:51am Hemoglobin November 04, 2017 14.1 g/dL 13.5-17.5 5:51am Hematocrit November 04, 2017 41.3 % 41-53 5:51am Mean Corpuscular November 04, 2017 88.8 fL 79-99 Volume 5:51am Mean Corpuscular November 04, 2017 30.4 pg 25.0-34.0 Hemoglobin 5:51am Mean Corpuscular November 04, 2017 34.2 g/dL 31.0-36.0 Hemoglobin Concent 5:51am Red Cell Distribution November 04, 2017 13.9 % 11.0-15.0 Width 5:51am Platelet Count November 04, 2017 223 10^3 uL 130-400 5:51am Mean Platelet Volume November 04, 2017 8.7 fL 7.0-11.0 5:51am Neutrophils (%) November 04, 2017 74.3 % [...] 6:30am Urine Specific November 04, 2017 1.025 [place] 6:30am Urine Protein November 04, 2017 Trace [...] 2+ or > * Sodium Level November 04, 2017 137 mmol/L 135-150 5:51am Potassium Level November 04, 2017 4.3 mmol/L 3.4-5.2 5:51am Chloride Level November 04, 2017 103 mmol/L 100-112 5:51am Carbon Dioxide Level November 04, 2017 23 mEq/L 18-30 5:51am Anion Gap November 04, 2017 11 mmol/L 8-11 5:51am Blood Urea Nitrogen November 04, 2017 10 mg/dL 5-21 5:51am Creatinine November 04, 2017 0.79 mg/dL 0.60-1.30 5:51am Glomerular Filtration November 04, 2017 > 60 mL/Min The GFR is not validated for use in drug dosing adjustments. Rate Calc 5:51am Continue to use estimated creatinine clearance per dosing reference text. Chronic Kidney Disease is defined as either kidney damage or a GFR less than 60 ml/min that persists for at least 3 months. Stage 3=30-59 ml/min Stage 4=15-29 ml/min Stage 5=<15 ml/min Glucose Level November 04, 2017 99 mg/dL 70-99 5:51am Lactic Acid Level November 04, 2017 1.4 mmol/L 0.4-2.0 9:08am Calcium Level November 04, 2017 8.9 mg/dL 8.6-10.5 5:51am Total Bilirubin November 04, 2017 0.3 mg/dL 0.0-1.2 5:51am Aspartate Amino November 04, 2017 32 U/L 6-37 Transf (AST/SGOT) 5:51am Alanine November 04, 2017 54 U/L 12-78 Aminotransferase 5:51am (ALT/SGPT) Troponin I November 03, 2017 < 0.01 0.00-0.05 5:00pm ng/mL Total Protein November 04, 2017 6.6 g/dL 6.4-8.2 5:51am Albumin November 04, 2017 3.4 g/dL 3.3-4.5 5:51am Albumin/Globulin November 04, 2017 1.1 0.7-2.0 Ratio 5:51am Alkaline Phosphatase November 04, 2017 84 U/L 50-136 5:51am Procalcitonin November 04, 2017 0.34 ng/mL High 0.00-0.10 PCT Conc. Interpretation 5:51am < 0.5 ng/mL Low risk for progression to severe sepsis &/or shock 0.5-2.0 ng/mL Sepsis should be considered > 2.0 ng/mL High risk for progression to severe sepsis &/or shock Microbiology Results Procedure Source Result Collection Result Date/Time Date/Time Respiratory Panel Nasopharyngeal No results November 04, 2017 (PCR) entered 5:48am Advance Directives Advance Directive Response Recorded Date/Time Advance Directive on File? No November 04, 2017 5:36am Chief Complaint and Reason for Visit Encounter Admit Date Chief Complaint Reason for Visit Departed Emergency November 04, 2017 5:18am fever Hospital Discharge Instructions Additional Discharge Instructions Home to rest. After discussions with Dr. Jay Wilkinson stop the augmentin and begin levaquin, 500mg, one tablet every day x 7 days. Also, continue with the prednisone and breathing treatments as prescrib ed. Follow up with Dr. Thompson in the next several days. Please return to the emergency room for any concerns, especially for uncontrolled wheezing, shortness of breath, or for any other concern. Instruction/Education Provided Asthma (ED) Acute Bronchitis (ED) Problem: General Adult Complaint Goal: Establish baseline assessment. Return to ADL's. Plan: Refer to patient instructions provided. Hospital Discharge Medications Medication Dose Units Route Sig Qty Days Order Status Instructions Date Ipratropium-Albut 3 ML Inhalation Every 6 to 90 October zev 8 hours 10, PRN For 2017 shortness of breath Prednisone October Tramadol October Ibuprofen 400 MG Oral Q6H PRN October Ergocalciferol 51217 UNIT Oral Weekly October (Vitamin D2) 2017 [...] Admit/Visit Discharge/Departure Attending Date Date Provider Departed [facility] November 04, 2017 November 04, 2017 9:49am [facility] 5:18am Health Departed [facility] November 03, 2017 November 03, 2017 5:59pm [facility] 4:46pm Health Family History Query Response Instance Date Recorded Comment Family History unable to obtain November 04, 2017 5:50am Functional Status No known functional status. Immunizations No known immunizations. Payers Payer Name Policy Type Covered Covered Relationship Subscriber Subscriber Id Green Party Green Party Id [facility] [id number] [facility] Self Pay Plan of Care Instructions Asthma (ED) Acute Bronchitis (ED) Problem: General Adult Complaint Goal: Establish baseline assessment. Return to ADL's. Plan: Refer to patient instructions provided. Social History Query Response Date Recorded Comment Recent Travel No November 04, 2017 5:50am household members spouse November 04, 2017 5:50am housing house November 04, 2017 5:50am substance use type does not use November 04, 2017 5:50am Query Response Start Date Stop Date Smoking Status Former smoker Vital Signs Vital Reading Result Reference Range Collection Date/Time Height 6 ft 1 in November 04, 2017 5:39am Weight 195 lb November 04, 2017 5:39am Temperature 98.0 F 97.5 F-99.5 F November 04, 2017 8:18am Pulse 88 BPM 60-90 November 04, 2017 5:23am Respiration 40 RPM 12-20 November 04, 2017 5:23am Pulse Oximetry 100 % 90-100 November 04, 2017 5:23am Blood Pressure Systolic 130 100-160 November 04, 2017 5:23am Blood Pressure Diastolic 75 50-80 November 04, 2017 5:23am Body Mass Index 25.7 November 04, 2017 5:39am
--- OUTSIDE RECORDS SUMMARY | 2017-11-05 19:19 | External Medical Summary | Continuity of Care Document ---
:1975 Author Organization [facility] Allergies Active Description Code Type Severity Reaction Onset Reported/ Identified Relationship Clinical to Patient Status Yes DOXYCYCLINE 4147 DRUG N/A N/A MONOHYDRATE INGRE DI Yes DOXYCYCLINE N/A N/A 06/13/2014 Medications There is no data. 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, Cinderella T leukemia, Cinderella T BCR/ABL-positive, in remission 09/13/2016 Chivo HAMMER, F 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, Cinderella T leukemia, Cinderella T BCR/ABL-positive, in remission 12/14/2016 Víctor Mccracken 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, Víctor M leukemia, M BCR/ABL-positive, in remission 03/07/2017 Víctor Mccracken 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, Víctor M leukemia, M BCR/ABL-positive, in remission 03/07/2017 Víctor Mccracken R29.898 Other symptoms and Víctor Mccracken signs involving the M musculoskeletal system 03/14/2017 Víctor Mccracken F 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, Víctor M leukemia, M BCR/ABL-positive, in remission 04/22/2017 Víctor Mccracken 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, Víctor M leukemia, M BCR/ABL-positive, in remission 05/16/2017 Víctor Mccracken C92.10 Chronic myeloid ElaminVíctor leukemia, M BCR/ABL-positive, not having achieved remission 08/27/2017 F J06.9 Acute upper respiratory infection, unspecified Procedures Code Description Performed By Performed On [id number] HIV-1 AND 03/01/2016 HIV-2 ANTIBODIES [id number] 08/27/2017 OFFICE/OUTPATIENT VISIT, NEW Results Test Result Range COMP METABOLIC PROFILE - 09/20/15 07:04 ALBUMIN 3.6 g/dl 3.3-4.5 ALKALINE PHOSPHATASE 69 U/L 46-116 ANION GAP 8 mmol/L 8-16 BILIRUBIN TOTAL 0.4 mg/dl 0.0-1.2 GLUCOSE 109 mg/dl 70-99 BUN 12 mg/dl 5-21 CALCIUM 8.6 mg/dl 8.6-10.5 CHLORIDE 108 mmol/L 100-112 CARBON DIOXIDE 28 meq/L 21-33 AST/GOT 38 U/L 6-37 ALT/GPT 47 U/L 12-78 POTASSIUM 3.6 mmol/L 3.4-5.2 SODIUM 144 mmol/L 135-150 TOTAL PROTEIN 6.5 g/dl 6.4-8.2 CREATININE 1.02 mg/dl 0.60-1.30 GFR ESTIMATE > 60 mL/Min > 60 AG RATIO 1.2 0.7-2.0 COMPLETE BLOOD COUNT W/DIFF - 09/20/15 07:04 HEMOGLOBIN 13.7 g/dl 13.5-17.5 PLATELET COUNT 217 10 3/uL 130-400 WHITE BLOOD CELL COUNT 5.2 10 3/uL 4.5-11.0 NEUTROPHIL% 56.7 % 43.0-72.0 LYMPHOCYTE% 29.1 % 15.0-45.0 MONOCYT% 11.7 % 1.0-12.0 EOSINOPHIL% 1.7 % 0.0-6.0 BASOPHIL% 0.8 % 0.0-2.0 NEUTROPHIL# 2.9 10 3/uL 1.0-8.0 LYMPHOCYTE# 1.5 10 3/uL 1.0-3.0 MONOCYTE# 0.6 10 3/uL 0.0-1.0 EOSINOPHIL# 0.1 10 3/uL 0.0-0.4 BASOPHIL# 0.0 10 3/uL 0.0-0.2 RED BLOOD CELL 4.47 10 6/uL 4.70-6.00 HEMATOCRIT 41.8 % 41-53 MEAN CORPUSCULAR VOLUME 93.5 fL 80-100 MEAN CORPUSCULAR HEMOGLOBIN 30.7 pg 25.0-34.0 MEAN CELL HEMOGLOBIN CONC. 32.9 g/dL 31.0-36.0 RED CELL DISTRIBUTION WIDTH 13.3 % 11.0-15.0 MEAN PLATELET VOLUME 9.8 fL 7.0-11.0 BCR-ABL1 GENE - 09/20/15 07:04 PRIOR RESULT See Report () SOURCE: Peripheral Blood () BCR ABL1/ABL1% 0.000 % () BCR ALB1/ABL 1% 0.000 % () INTERPRETATION see note () P190 BCR ABL1 Not Detected () P210 BCR ABL1 Not Detected () BCR-ABL1 GENE - 12/14/15 10:51 PRIOR RESULT See Report () SOURCE: Peripheral Blood () BCR ABL1/ABL1% 0.000 % () BCR ALB1/ABL 1% 0.000 % () INTERPRETATION see note () P190 BCR ABL1 Not Detected () P210 BCR ABL1 Not Detected () HIV-1 AND HIV-2 ANTIBODIES - 03/01/16 16:20 [id number] Non-Reactive Non-Reactive HIV-1 AND HIV-2 ANTIBODIES - 03/01/16 16:20 [id number] Non-Reactive Non-Reactive COMPLETE BLOOD COUNT W/DIFF - 03/15/16 15:58 HEMOGLOBIN 13.4 g/dl 13.5-17.5 PLATELET COUNT 201 10 3/uL 130-400 WHITE BLOOD CELL COUNT 6.2 10 3/uL 4.5-11.0 NEUTROPHIL% 62.3 % 43.0-72.0 LYMPHOCYTE% 25.0 % 15.0-45.0 MONOCYT% 10.1 % 1.0-12.0 EOSINOPHIL% 1.9 % 0.0-6.0 BASOPHIL% 0.7 % 0.0-2.0 NEUTROPHIL# 3.9 10 3/uL 1.0-8.0 LYMPHOCYTE# 1.6 10 3/uL 1.0-3.0 MONOCYTE# 0.6 10 3/uL 0.0-1.0 EOSINOPHIL# 0.1 10 3/uL 0.0-0.4 BASOPHIL# 0.0 10 3/uL 0.0-0.2 RED BLOOD CELL 4.30 10 6/uL 4.70-6.00 HEMATOCRIT 40.3 % 41-53 MEAN CORPUSCULAR VOLUME 93.8 fL 80-100 MEAN CORPUSCULAR HEMOGLOBIN 31.2 pg 25.0-34.0 MEAN CELL HEMOGLOBIN CONC. 33.2 g/dL 31.0-36.0 RED CELL DISTRIBUTION WIDTH 13.1 % 11.0-15.0 MEAN PLATELET VOLUME 9.3 fL 7.0-11.0 COMP METABOLIC PROFILE - 03/15/16 15:58 ALBUMIN 3.8 g/dl 3.3-4.5 ALKALINE PHOSPHATASE 73 U/L 46-116 ANION GAP 6 mmol/L 8-16 BILIRUBIN TOTAL 0.2 mg/dl 0.0-1.2 GLUCOSE 98 mg/dl 70-99 BUN 14 mg/dl 5-21 CALCIUM 8.9 mg/dl 8.6-10.5 CHLORIDE 106 mmol/L 100-112 CARBON DIOXIDE 30 meq/L 21-33 AST/GOT 34 U/L 6-37 ALT/GPT 44 U/L 12-78 POTASSIUM 4.0 mmol/L 3.4-5.2 SODIUM 142 mmol/L 135-150 TOTAL PROTEIN 6.8 g/dl 6.4-8.2 CREATININE 1.02 mg/dl 0.60-1.30 GFR ESTIMATE > 60 mL/Min > 60 AG RATIO 1.3 0.7-2.0 BCR-ABL1 GENE - 03/15/16 15:58 PRIOR RESULT See Report () SOURCE: Peripheral Blood () BCR ABL1/ABL1% 0.000 % () BCR ALB1/ABL 1% 0.000 % () INTERPRETATION see note () P190 BCR ABL1 Not Detected () P210 BCR ABL1 Not Detected () COMPLETE BLOOD COUNT W/DIFF - 06/11/16 10:05 HEMOGLOBIN 13.9 g/dl 13.5-17.5 PLATELET COUNT 213 10 3/uL 130-400 WHITE BLOOD CELL COUNT 5.3 10 3/uL 4.5-11.0 NEUTROPHIL% 58.7 % 43.0-72.0 LYMPHOCYTE% 25.7 % 15.0-45.0 MONOCYT% 12.3 % 1.0-12.0 EOSINOPHIL% 2.5 % 0.0-6.0 BASOPHIL% 0.8 % 0.0-2.0 NEUTROPHIL# 3.1 10 3/uL 1.0-8.0 LYMPHOCYTE# 1.4 10 3/uL 1.0-3.0 MONOCYTE# 0.6 10 3/uL 0.0-1.0 EOSINOPHIL# 0.1 10 3/uL 0.0-0.4 BASOPHIL# 0.0 10 3/uL 0.0-0.2 RED BLOOD CELL 4.42 10 6/uL 4.70-6.00 HEMATOCRIT 41.9 % 41-53 MEAN CORPUSCULAR VOLUME 94.8 fL 80-100 MEAN CORPUSCULAR HEMOGLOBIN 31.5 pg 25.0-34.0 MEAN CELL HEMOGLOBIN CONC. 33.2 g/dL 31.0-36.0 RED CELL DISTRIBUTION WIDTH 13.6 % 11.0-15.0 MEAN PLATELET VOLUME 9.4 fL 7.0-11.0 COMP METABOLIC PROFILE - 06/11/16 10:05 ALBUMIN 3.7 g/dl 3.3-4.5 ALKALINE PHOSPHATASE 61 U/L 46-116 ANION GAP 5 mmol/L 8-16 BILIRUBIN TOTAL 0.2 mg/dl 0.0-1.2 GLUCOSE 107 mg/dl 70-99 BUN 13 mg/dl 5-21 CALCIUM 8.9 mg/dl 8.6-10.5 CHLORIDE 104 mmol/L 100-112 CARBON DIOXIDE 31 meq/L 21-33 AST/GOT 23 U/L 6-37 ALT/GPT 39 U/L 12-78 POTASSIUM 4.2 mmol/L 3.4-5.2 SODIUM 140 mmol/L 135-150 TOTAL PROTEIN 6.9 g/dl 6.4-8.2 CREATININE 1.00 mg/dl 0.60-1.30 GFR ESTIMATE > 60 mL/Min > 60 AG RATIO 1.2 0.7-2.0 BCR-ABL1 GENE - 06/11/16 10:05 PRIOR RESULT See Report () SOURCE: Peripheral Blood () BCR ABL1/ABL1% 0.000 % () BCR ALB1/ABL 1% 0.000 % () INTERPRETATION see note () P190 BCR ABL1 Not Detected () P210 BCR ABL1 Not Detected () COMPLETE BLOOD COUNT W/DIFF - 09/10/16 13:02 HEMOGLOBIN 13.8 g/dl 13.5-17.5 PLATELET COUNT 217 10 3/uL 130-400 WHITE BLOOD CELL COUNT 6.9 10 3/uL 4.5-11.0 NEUTROPHIL% 59.9 % 43.0-72.0 LYMPHOCYTE% 26.9 % 15.0-45.0 MONOCYT% 9.8 % 1.0-12.0 EOSINOPHIL% 2.4 % 0.0-6.0 BASOPHIL% 1.0 % 0.0-2.0 NEUTROPHIL# 4.1 10 3/uL 1.0-8.0 LYMPHOCYTE# 1.8 10 3/uL 1.0-3.0 MONOCYTE# 0.7 10 3/uL 0.0-1.0 EOSINOPHIL# 0.2 10 3/uL 0.0-0.4 BASOPHIL# 0.1 10 3/uL 0.0-0.2 RED BLOOD CELL 4.41 10 6/uL 4.70-6.00 HEMATOCRIT 41.2 % 41-53 MEAN CORPUSCULAR VOLUME 93.6 fL 80-100 MEAN CORPUSCULAR HEMOGLOBIN 31.3 pg 25.0-34.0 MEAN CELL HEMOGLOBIN CONC. 33.5 g/dL 31.0-36.0 RED CELL DISTRIBUTION WIDTH 13.4 % 11.0-15.0 MEAN PLATELET VOLUME 9.3 fL 7.0-11.0 COMP METABOLIC PROFILE - 09/10/16 13:02 ALBUMIN 3.7 g/dl 3.3-4.5 ALKALINE PHOSPHATASE 68 U/L 46-116 ANION GAP 10 mmol/L 8-16 BILIRUBIN TOTAL 0.2 mg/dl 0.0-1.2 GLUCOSE 93 mg/dl 70-99 BUN 15 mg/dl 5-21 CALCIUM 8.7 mg/dl 8.6-10.5 CHLORIDE 105 mmol/L 100-112 CARBON DIOXIDE 27 meq/L 21-33 AST/GOT 23 U/L 6-37 ALT/GPT 41 U/L 12-78 POTASSIUM 4.1 mmol/L 3.4-5.2 SODIUM 142 mmol/L 135-150 TOTAL PROTEIN 6.9 g/dl 6.4-8.2 CREATININE 0.91 mg/dl 0.60-1.30 GFR ESTIMATE > 60 mL/Min > 60 AG RATIO 1.2 0.7-2.0 BCR-ABL1 GENE - 09/10/16 13:02 PRIOR RESULT See Report () SOURCE: Peripheral Blood () BCR ABL1/ABL1% 0.000 % () BCR ALB1/ABL 1% 0.000 % () INTERPRETATION see note () P190 BCR ABL1 Not Detected () P210 BCR ABL1 Not Detected () COMPLETE BLOOD COUNT W/DIFF - 12/10/16 11:25 HEMOGLOBIN 14.2 g/dl 13.5-17.5 PLATELET COUNT 216 10 3/uL 130-400 WHITE BLOOD CELL COUNT 5.6 10 3/uL 4.5-11.0 NEUTROPHIL% 51.6 % 43.0-72.0 LYMPHOCYTE% 33.7 % 15.0-45.0 MONOCYT% 12.5 % 1.0-12.0 EOSINOPHIL% 1.4 % 0.0-6.0 BASOPHIL% 0.8 % 0.0-2.0 NEUTROPHIL# 2.9 10 3/uL 1.0-8.0 LYMPHOCYTE# 1.9 10 3/uL 1.0-3.0 MONOCYTE# 0.7 10 3/uL 0.0-1.0 EOSINOPHIL# 0.1 10 3/uL 0.0-0.4 BASOPHIL# 0.0 10 3/uL 0.0-0.2 RED BLOOD CELL 4.46 10 6/uL 4.70-6.00 HEMATOCRIT 41.9 % 41-53 MEAN CORPUSCULAR VOLUME 94.0 fL 80-100 MEAN CORPUSCULAR HEMOGLOBIN 31.8 pg 25.0-34.0 MEAN CELL HEMOGLOBIN CONC. 33.8 g/dL 31.0-36.0 RED CELL DISTRIBUTION WIDTH 14.1 % 11.0-15.0 MEAN PLATELET VOLUME 8.8 fL 7.0-11.0 COMP METABOLIC PROFILE - 12/10/16 11:25 ALBUMIN 3.9 g/dL 3.3-4.5 ALKALINE PHOSPHATASE 58.0 U/L 50-136 ANION GAP 8 mmol/L 8-16 BILIRUBIN TOTAL 0.4 mg/dL 0.0-1.2 GLUCOSE 99 mg/dL 70-99 BUN 13 mg/dL 5-21 CALCIUM 9.3 mg/dL 8.6-10.5 CHLORIDE 105 mmol/L 100-112 CARBON DIOXIDE 27 mEq/L 18-30 AST/GOT 28.0 U/L 6-37 ALT/GPT 40.0 U/L 12-78 POTASSIUM 4.0 mmol/L 3.4-5.2 SODIUM 140 mmol/L 135-150 TOTAL PROTEIN 7.1 g/dL 6.4-8.2 CREATININE 0.96 mg/dL 0.60-1.30 GFR ESTIMATE > 60 mL/Min > 60 AG RATIO 1.2 0.7-2.0 BCR-ABL1 GENE - 12/10/16 11:25 PRIOR RESULT See Report () SOURCE: Peripheral Blood () BCR ABL1/ABL1% 0.000 % () BCR ALB1/ABL 1% 0.000 % () INTERPRETATION see note () P190 BCR ABL1 Not Detected () P210 BCR ABL1 Not Detected () SEDIMENTATION RATE, MANUAL - 01/25/17 15:44 [id number] 2 mm/Hr <=15 MONONUCLEOSIS SCREEN - 01/25/17 15:44 MONONUCLEOSIS Negative COMPREHENSIVE METABOLIC PANEL - 01/25/17 15:44 ALBUMIN 4.0 g/dL 3.5-5.0 ALKALINE PHOSPHATASE 73 U/L 46-116 ALT 42 U/L 21-72 ANION GAP 7 AST 29 U/L 17-59 BILIRUBIN,TOTAL 0.3 mg/dL 0.2-1.3 BUN BLOOD 16 mg/dL 9-20 CALCIUM 9.1 mg/dL 8.4-10.2 CHLORIDE 105 mmol/L 99-108 CO2 30 mmol/L 22-30 CREATININE 1.00 mg/dL 0.80-1.50 EGFR > mL/min >59 GLUCOSE 96 mg/dL 64-110 POTASSIUM 4.2 mmol/L 3.6-5.0 PROTEIN TOTAL 7.2 g/dL 6.0-8.0 SODIUM 142 mmol/L 135-145 CK - 01/25/17 15:44 CPK 316 U/L 38-174 VITAMIN B12 - 01/25/17 15:44 VITAMIN B12 447 pg/mL 211-911 SEDIMENTATION RATE, MANUAL - 01/25/17 15:44 [id number] 2 mm/Hr <=15 MONONUCLEOSIS SCREEN - 01/25/17 15:44 MONONUCLEOSIS Negative COMPREHENSIVE METABOLIC PANEL - 01/25/17 15:44 ALBUMIN 4.0 g/dL 3.5-5.0 ALKALINE PHOSPHATASE 73 U/L 46-116 ALT 42 U/L 21-72 ANION GAP 7 AST 29 U/L 17-59 BILIRUBIN,TOTAL 0.3 mg/dL 0.2-1.3 BUN BLOOD 16 mg/dL 9-20 CALCIUM 9.1 mg/dL 8.4-10.2 CHLORIDE 105 mmol/L 99-108 CO2 30 mmol/L 22-30 CREATININE 1.00 mg/dL 0.80-1.50 EGFR > mL/min >59 GLUCOSE 96 mg/dL 64-110 POTASSIUM 4.2 mmol/L 3.6-5.0 PROTEIN TOTAL 7.2 g/dL 6.0-8.0 SODIUM 142 mmol/L 135-145 CK - 01/25/17 15:44 CPK 316 U/L 38-174 VITAMIN B12 - 01/25/17 15:44 VITAMIN B12 447 pg/mL 211-911 COMPLETE BLOOD COUNT W/DIFF - 03/12/17 16:01 HEMOGLOBIN 13.7 g/dl 13.5-17.5 PLATELET COUNT 238 10 3/uL 130-400 WHITE BLOOD CELL COUNT 7.3 10 3/uL 4.5-11.0 NEUTROPHIL% 60.5 % 43.0-72.0 LYMPHOCYTE% 25.9 % 15.0-45.0 MONOCYT% 11.5 % 1.0-12.0 EOSINOPHIL% 1.3 % 0.0-6.0 BASOPHIL% 0.8 % 0.0-2.0 NEUTROPHIL# 4.4 10 3/uL 1.0-8.0 LYMPHOCYTE# 1.9 10 3/uL 1.0-3.0 MONOCYTE# 0.8 10 3/uL 0.0-1.0 EOSINOPHIL# 0.1 10 3/uL 0.0-0.4 BASOPHIL# 0.1 10 3/uL 0.0-0.2 RED BLOOD CELL 4.38 10 6/uL 4.70-6.00 HEMATOCRIT 40.7 % 41-53 MEAN CORPUSCULAR VOLUME 92.8 fL 80-100 MEAN CORPUSCULAR HEMOGLOBIN 31.3 pg 25.0-34.0 MEAN CELL HEMOGLOBIN CONC. 33.7 g/dL 31.0-36.0 RED CELL DISTRIBUTION WIDTH 13.1 % 11.0-15.0 MEAN PLATELET VOLUME 9.1 fL 7.0-11.0 BCR-ABL1 GENE - 03/12/17 16:01 PRIOR RESULT See Report () SOURCE: Peripheral Blood () BCR ABL1/ABL1% 0.000 % () BCR ALB1/ABL 1% 0.000 % () INTERPRETATION see note () P190 BCR ABL1 Not Detected () P210 BCR ABL1 Not Detected () COMP METABOLIC PROFILE - 03/12/17 16:02 ALBUMIN 3.8 g/dL 3.3-4.5 ALKALINE PHOSPHATASE 75.0 U/L 50-136 ANION GAP 9 mmol/L 8-16 BILIRUBIN TOTAL 0.3 mg/dL 0.0-1.2 GLUCOSE 104 mg/dL 70-99 BUN 15 mg/dL 5-21 CALCIUM 9.1 mg/dL 8.6-10.5 CHLORIDE 106 mmol/L 100-112 CARBON DIOXIDE 26 mEq/L 18-30 AST/GOT 25.0 U/L 6-37 ALT/GPT 27.0 U/L 12-78 POTASSIUM 4.1 mmol/L 3.4-5.2 SODIUM 141 mmol/L 135-150 TOTAL PROTEIN 6.9 g/dL 6.4-8.2 CREATININE 0.95 mg/dL 0.60-1.30 GFR ESTIMATE > 60 mL/Min > 60 AG RATIO 1.2 0.7-2.0 COMPLETE BLOOD COUNT W/DIFF - 04/16/17 16:15 HEMOGLOBIN 14.4 g/dl 13.5-17.5 PLATELET COUNT 242 10 3/uL 130-400 WHITE BLOOD CELL COUNT 6.7 10 3/uL 4.5-11.0 NEUTROPHIL% 64.1 % 43.0-72.0 LYMPHOCYTE% 23.5 % 15.0-45.0 MONOCYT% 10.6 % 1.0-12.0 EOSINOPHIL% 0.8 % 0.0-6.0 BASOPHIL% 1.0 % 0.0-2.0 NEUTROPHIL# 4.3 10 3/uL 1.0-8.0 LYMPHOCYTE# 1.6 10 3/uL 1.0-3.0 MONOCYTE# 0.7 10 3/uL 0.0-1.0 EOSINOPHIL# 0.1 10 3/uL 0.0-0.4 BASOPHIL# 0.1 10 3/uL 0.0-0.2 RED BLOOD CELL 4.63 10 6/uL 4.70-6.00 HEMATOCRIT 42.8 % 41-53 MEAN CORPUSCULAR VOLUME 92.4 fL 80-100 MEAN CORPUSCULAR HEMOGLOBIN 31.2 pg 25.0-34.0 MEAN CELL HEMOGLOBIN CONC. 33.7 g/dL 31.0-36.0 RED CELL DISTRIBUTION WIDTH 12.4 % 11.0-15.0 MEAN PLATELET VOLUME 9.7 fL 7.0-11.0 COMP METABOLIC PROFILE - 04/16/17 16:15 ALBUMIN 4.0 g/dL 3.3-4.5 ALKALINE PHOSPHATASE 73.0 U/L 50-136 ANION GAP 10 mmol/L 8-16 BILIRUBIN TOTAL 0.4 mg/dL 0.0-1.2 GLUCOSE 98 mg/dL 70-99 BUN 14 mg/dL 5-21 CALCIUM 9.6 mg/dL 8.6-10.5 CHLORIDE 104 mmol/L 100-112 CARBON DIOXIDE 26 mEq/L 18-30 AST/GOT 25.0 U/L 6-37 ALT/GPT 27.0 U/L 12-78 POTASSIUM 3.8 mmol/L 3.4-5.2 SODIUM 140 mmol/L 135-150 TOTAL PROTEIN 7.2 g/dL 6.4-8.2 CREATININE 1.08 mg/dL 0.60-1.30 GFR ESTIMATE > 60 mL/Min > 60 AG RATIO 1.3 0.7-2.0 BCR-ABL1 GENE - 04/16/17 16:15 PRIOR RESULT See Report () SOURCE: Peripheral Blood () BCR ABL1/ABL1% 0.000 % () BCR ALB1/ABL 1% 0.000 % () INTERPRETATION see note () P190 BCR ABL1 Not Detected () P210 BCR ABL1 Not Detected () CBC WITH MANUAL DIFFERENTIAL - 05/13/17 16:00 ABSOLUTE NEUTROPHIL COUNT 4.9 # 1.0-8.0 HEMOGLOBIN 13.9 g/dl 13.5-17.5 PLATELET COUNT 213 10 3/uL 130-400 WHITE BLOOD CELL COUNT 7.1 10 3/uL 4.5-11.0 LYMPHOCYTE# 1.8 # 1.0-3.0 MONOCYTE# 0.1 # 0.0-1.0 EOSINOPHIL# 0.1 # 0.0-0.4 BASOPHIL# 0.1 # 0.0-0.2 SEGS 67 % 50-65 BANDS 2 % 0-10 LYMPHS 25 % 15-45 MONOS 2 % 0-10 EOS 2 % 0-5 BASOS 2 % 0-2 RED BLOOD CELL 4.56 10 6/uL 4.70-6.00 HEMATOCRIT 42.3 % 41-53 MEAN CORPUSCULAR VOLUME 92.8 fL 80-100 MEAN CORPUSCULAR HEMOGLOBIN 30.4 pg 25.0-34.0 MEAN CELL HEMOGLOBIN CONC. 32.8 g/dL 31.0-36.0 RED CELL DISTRIBUTION WIDTH 12.5 % 11.0-15.0 MEAN PLATELET VOLUME 9.7 fL 7.0-11.0 SCAN - 06/12/17 16:55 RBC MORPHOLOGY RBC morphology appears normal [id number] Results confirmed by microscopic exam COMPREHENSIVE METABOLIC PANEL - 06/12/17 16:55 ALBUMIN 4.0 g/dL 3.4-5.0 ALKALINE PHOSPHATASE 77 U/L 46-116 ALT 44 U/L 12-78 ANION GAP 8 AST 25 U/L 15-37 BILIRUBIN,TOTAL 0.2 mg/dL 0.0-1.0 BUN BLOOD 13 mg/dL 7-22 CALCIUM 8.9 mg/dL 8.8-10.5 CHLORIDE 103 mmol/L 98-107 CO2 29 mmol/L 21-32 CREATININE 1.01 mg/dL 0.60-1.30 EGFR > mL/min >59 GLUCOSE 87 mg/dL 74-106 POTASSIUM 4.3 mmol/L 3.5-5.1 PROTEIN TOTAL 7.2 g/dL 6.4-8.2 SODIUM 140 mmol/L 136-145 SCAN - 06/12/17 16:55 RBC MORPHOLOGY RBC morphology appears normal [id number] Results confirmed by microscopic exam COMPREHENSIVE METABOLIC PANEL - 06/12/17 16:55 ALBUMIN 4.0 g/dL 3.4-5.0 ALKALINE PHOSPHATASE 77 U/L 46-116 ALT 44 U/L 12-78 ANION GAP 8 AST 25 U/L 15-37 BILIRUBIN,TOTAL 0.2 mg/dL 0.0-1.0 BUN BLOOD 13 mg/dL 7-22 CALCIUM 8.9 mg/dL 8.8-10.5 CHLORIDE 103 mmol/L 98-107 CO2 29 mmol/L 21-32 CREATININE 1.01 mg/dL 0.60-1.30 EGFR > mL/min >59 GLUCOSE 87 mg/dL 74-106 POTASSIUM 4.3 mmol/L 3.5-5.1 PROTEIN TOTAL 7.2 g/dL 6.4-8.2 SODIUM 140 mmol/L 136-145 BCR-ABL1 Gene Rearrangement,Qt - 06/13/17 16:30 PRIOR RESULT See Report NRG SOURCE: Peripheral Blood NRG BCR ABL1/ABL1% 0.000 % NRG BCR ALB1/ABL 1% 0.000 % NRG INTERPRETATION see note NRG P190 BCR ABL1 Not Detected NRG P210 BCR ABL1 Not Detected NRG RAPID INFLUENZA A/B ANTIGENS - 07/24/17 16:33 [id number] Negative Negative [id number] Negative Negative RAPID INFLUENZA A/B ANTIGENS - 07/24/17 16:33 [id number] Negative Negative [id number] Negative Negative CBC WITH AUTO DIFFERENTIAL - 07/24/17 16:39 BASOPHILS RELATIVE PERCENT 1.1 % 0.0-2.5 EOSINOPHILS RELATIVE PERCENT 1.7 % <=5.0 HEMATOCRIT 43.5 % 38.8-50.0 HEMOGLOBIN 14.6 g/dL 13.5-17.5 LYMPHOCYTES RELATIVE PERCENT 28.6 % 22.0-49.0 MEAN CORPUSCULAR HEMOGLOBIN 30.0 pg 26.0-34.0 MEAN CORPUSCULAR HEMOGLOBIN CONC 33.4 g/dL 31.0-37.0 MEAN CORPUSCULAR VOLUME 89.8 fL 81.2-95.1 MONOCYTES RELATIVE PERCENT 12.9 % 2.0-9.0 NEUTROPHILS RELATIVE PERCENT 55.7 % 40.0-75.0 PLATELET COUNT 274 10E9/L 150-450 RED BLOOD CELL COUNT 4.85 10E12/L 4.32-5.72 RED CELL DISTRIBUTION WIDTH 12.8 % 11.8-15.6 [id number] 7.6 10E9/L 3.5-10.5 6868703 2.20 10E9/L 0.90-2.90 9916104 1.00 10E9/L 0.30-0.90 2382019 0.10 10E9/L 0.05-0.50 1251671 4.20 10E9/L 1.70-7.00 8755150 0.10 10E9/L 0.00-0.30 CBC WITH AUTO DIFFERENTIAL - 07/24/17 16:39 BASOPHILS RELATIVE PERCENT 1.1 % 0.0-2.5 EOSINOPHILS RELATIVE PERCENT 1.7 % <=5.0 HEMATOCRIT 43.5 % 38.8-50.0 HEMOGLOBIN 14.6 g/dL 13.5-17.5 LYMPHOCYTES RELATIVE PERCENT 28.6 % 22.0-49.0 MEAN CORPUSCULAR HEMOGLOBIN 30.0 pg 26.0-34.0 MEAN CORPUSCULAR HEMOGLOBIN CONC 33.4 g/dL 31.0-37.0 MEAN CORPUSCULAR VOLUME 89.8 fL 81.2-95.1 MONOCYTES RELATIVE PERCENT 12.9 % 2.0-9.0 NEUTROPHILS RELATIVE PERCENT 55.7 % 40.0-75.0 PLATELET COUNT 274 10E9/L 150-450 RED BLOOD CELL COUNT 4.85 10E12/L 4.32-5.72 RED CELL DISTRIBUTION WIDTH 12.8 % 11.8-15.6 6905191 7.6 10E9/L 3.5-10.5 1420442 2.20 10E9/L 0.90-2.90 6915359 1.00 10E9/L 0.30-0.90 7257354 0.10 10E9/L 0.05-0.50 9636934 4.20 10E9/L 1.70-7.00 2905488 0.10 10E9/L 0.00-0.30 RAPID INFLUENZA A/B ANTIGENS - 09/02/17 13:00 [id number] Negative Negative [id number] Negative Negative RAPID INFLUENZA A/B ANTIGENS - 09/02/17 13:00 [id number] Negative Negative [id number] Negative Negative CBC WITH AUTO DIFFERENTIAL - 09/02/17 13:05 BASOPHILS RELATIVE PERCENT 0.2 % 0.0-2.5 EOSINOPHILS RELATIVE PERCENT 0.1 % <=5.0 HEMATOCRIT 44.3 % 38.8-50.0 HEMOGLOBIN 14.5 g/dL 13.5-17.5 LYMPHOCYTES RELATIVE PERCENT 12.5 % 22.0-49.0 MEAN CORPUSCULAR HEMOGLOBIN 29.5 pg 26.0-34.0 MEAN CORPUSCULAR HEMOGLOBIN CONC 32.6 g/dL 31.0-37.0 MEAN CORPUSCULAR VOLUME 90.5 fL 81.2-95.1 MONOCYTES RELATIVE PERCENT 3.5 % 2.0-9.0 NEUTROPHILS RELATIVE PERCENT 83.7 % 40.0-75.0 PLATELET COUNT 309 10E9/L 150-450 RED BLOOD CELL COUNT 4.90 10E12/L 4.32-5.72 RED CELL DISTRIBUTION WIDTH 13.1 % 11.8-15.6 6441297 7.6 10E9/L 3.5-10.5 0671159 0.90 10E9/L 0.90-2.90 3444809 0.30 10E9/L 0.30-0.90 3996255 0.00 10E9/L 0.05-0.50 5269694 6.40 10E9/L 1.70-7.00 4588102 0.00 10E9/L 0.00-0.30 COMPREHENSIVE METABOLIC PANEL - 09/02/17 13:05 ALBUMIN 3.3 g/dL 3.4-5.0 ALKALINE PHOSPHATASE 89 U/L 46-116 ALT 60 U/L 16-63 ANION GAP 9 AST 43 U/L 15-37 BILIRUBIN,TOTAL 0.2 mg/dL 0.2-1.0 BUN BLOOD 15 mg/dL 7-18 CALCIUM 8.5 mg/dL 8.8-10.1 CHLORIDE 103 mmol/L 98-107 CO2 28 mmol/L 21-32 CREATININE 1.15 mg/dL 0.70-1.30 EGFR > mL/min >59 GLUCOSE 226 mg/dL 74-106 POTASSIUM 3.7 mmol/L 3.5-5.1 PROTEIN TOTAL 7.1 g/dL 6.4-8.2 SODIUM 140 mmol/L 136-145 CBC WITH AUTO DIFFERENTIAL - 09/02/17 13:05 BASOPHILS RELATIVE PERCENT 0.2 % 0.0-2.5 EOSINOPHILS RELATIVE PERCENT 0.1 % <=5.0 HEMATOCRIT 44.3 % 38.8-50.0 HEMOGLOBIN 14.5 g/dL 13.5-17.5 LYMPHOCYTES RELATIVE PERCENT 12.5 % 22.0-49.0 MEAN CORPUSCULAR HEMOGLOBIN 29.5 pg 26.0-34.0 MEAN CORPUSCULAR HEMOGLOBIN CONC 32.6 g/dL 31.0-37.0 MEAN CORPUSCULAR VOLUME 90.5 fL 81.2-95.1 MONOCYTES RELATIVE PERCENT 3.5 % 2.0-9.0 NEUTROPHILS RELATIVE PERCENT 83.7 % 40.0-75.0 PLATELET COUNT 309 10E9/L 150-450 RED BLOOD CELL COUNT 4.90 10E12/L 4.32-5.72 RED CELL DISTRIBUTION WIDTH 13.1 % 11.8-15.6 3346756 7.6 10E9/L 3.5-10.5 0158271 0.90 10E9/L 0.90-2.90 2782349 0.30 10E9/L 0.30-0.90 4657766 0.00 10E9/L 0.05-0.50 0752000 6.40 10E9/L 1.70-7.00 8756118 0.00 10E9/L 0.00-0.30 COMPREHENSIVE METABOLIC PANEL - 09/02/17 13:05 ALBUMIN 3.3 g/dL 3.4-5.0 ALKALINE PHOSPHATASE 89 U/L 46-116 ALT 60 U/L 16-63 ANION GAP 9 AST 43 U/L 15-37 BILIRUBIN,TOTAL 0.2 mg/dL 0.2-1.0 BUN BLOOD 15 mg/dL 7-18 CALCIUM 8.5 mg/dL 8.8-10.1 CHLORIDE 103 mmol/L 98-107 CO2 28 mmol/L 21-32 CREATININE 1.15 mg/dL 0.70-1.30 EGFR > mL/min >59 GLUCOSE 226 mg/dL 74-106 POTASSIUM 3.7 mmol/L 3.5-5.1 PROTEIN TOTAL 7.1 g/dL 6.4-8.2 SODIUM 140 mmol/L 136-145 BCR-ABL1 Gene Rearrangement,Qt - 09/09/17 10:02 PRIOR RESULT See Report NRG SOURCE: Peripheral Blood NRG BCR ALB1/ABL 1% 0.127 % NRG INTERPRETATION see note NRG P210 BCR ABL1 Detected NRG EXTRA SST TUBE - 09/16/17 16:25 1324 Extra tube in lab VITAMIN D2/D3 TOTAL - 09/16/17 16:25 VITAMIN D2/D3 TOTAL 16 ng/ml 30-100 EXTRA SST TUBE - 09/16/17 16:25 1324 Extra tube in lab VITAMIN D2/D3 TOTAL - 09/16/17 16:25 VITAMIN D2/D3 TOTAL 16 ng/ml 30-100 CBC WITH AUTO DIFFERENTIAL - 09/16/17 16:28 BASOPHILS RELATIVE PERCENT 1.0 % 0.0-2.5 EOSINOPHILS RELATIVE PERCENT 1.3 % <=5.0 HEMATOCRIT 41.0 % 38.8-50.0 HEMOGLOBIN 13.4 g/dL 13.5-17.5 LYMPHOCYTES RELATIVE PERCENT 28.3 % 22.0-49.0 MEAN CORPUSCULAR HEMOGLOBIN 29.4 pg 26.0-34.0 MEAN CORPUSCULAR HEMOGLOBIN CONC 32.8 g/dL 31.0-37.0 MEAN CORPUSCULAR VOLUME 89.8 fL 81.2-95.1 MONOCYTES RELATIVE PERCENT 10.3 % 2.0-9.0 NEUTROPHILS RELATIVE PERCENT 59.1 % 40.0-75.0 PLATELET COUNT 289 10E9/L 150-450 RED BLOOD CELL COUNT 4.57 10E12/L 4.32-5.72 RED CELL DISTRIBUTION WIDTH 13.3 % 11.8-15.6 7044869 7.7 10E9/L 3.5-10.5 9568127 2.20 10E9/L 0.90-2.90 1126210 0.80 10E9/L 0.30-0.90 7866931 0.10 10E9/L 0.05-0.50 8237335 4.50 10E9/L 1.70-7.00 7112609 0.10 10E9/L 0.00-0.30 COMPREHENSIVE METABOLIC PANEL - 09/16/17 16:28 ALBUMIN 3.7 g/dL 3.4-5.0 ALKALINE PHOSPHATASE 77 U/L 46-116 ALT 48 U/L 16-63 ANION GAP 8 AST 24 U/L 15-37 BILIRUBIN,TOTAL 0.2 mg/dL 0.2-1.0 BUN BLOOD 12 mg/dL 7-18 CALCIUM 8.6 mg/dL 8.8-10.1 CHLORIDE 106 mmol/L 98-107 CO2 29 mmol/L 21-32 CREATININE 0.88 mg/dL 0.70-1.30 EGFR > mL/min >59 GLUCOSE 96 mg/dL 74-106 POTASSIUM 3.9 mmol/L 3.5-5.1 PROTEIN TOTAL 7.1 g/dL 6.4-8.2 SODIUM 143 mmol/L 136-145 CBC WITH AUTO DIFFERENTIAL - 09/16/17 16:28 BASOPHILS RELATIVE PERCENT 1.0 % 0.0-2.5 EOSINOPHILS RELATIVE PERCENT 1.3 % <=5.0 HEMATOCRIT 41.0 % 38.8-50.0 HEMOGLOBIN 13.4 g/dL 13.5-17.5 LYMPHOCYTES RELATIVE PERCENT 28.3 % 22.0-49.0 MEAN CORPUSCULAR HEMOGLOBIN 29.4 pg 26.0-34.0 MEAN CORPUSCULAR HEMOGLOBIN CONC 32.8 g/dL 31.0-37.0 MEAN CORPUSCULAR VOLUME 89.8 fL 81.2-95.1 MONOCYTES RELATIVE PERCENT 10.3 % 2.0-9.0 NEUTROPHILS RELATIVE PERCENT 59.1 % 40.0-75.0 PLATELET COUNT 289 10E9/L 150-450 RED BLOOD CELL COUNT 4.57 10E12/L 4.32-5.72 RED CELL DISTRIBUTION WIDTH 13.3 % 11.8-15.6 3170149 7.7 10E9/L 3.5-10.5 8919219 2.20 10E9/L 0.90-2.90 5799367 0.80 10E9/L 0.30-0.90 9443905 0.10 10E9/L 0.05-0.50 9209409 4.50 10E9/L 1.70-7.00 3897038 0.10 10E9/L 0.00-0.30 COMPREHENSIVE METABOLIC PANEL - 09/16/17 16:28 ALBUMIN 3.7 g/dL 3.4-5.0 ALKALINE PHOSPHATASE 77 U/L 46-116 ALT 48 U/L 16-63 ANION GAP 8 AST 24 U/L 15-37 BILIRUBIN,TOTAL 0.2 mg/dL 0.2-1.0 BUN BLOOD 12 mg/dL 7-18 CALCIUM 8.6 mg/dL 8.8-10.1 CHLORIDE 106 mmol/L 98-107 CO2 29 mmol/L 21-32 CREATININE 0.88 mg/dL 0.70-1.30 EGFR > mL/min >59 GLUCOSE 96 mg/dL 74-106 POTASSIUM 3.9 mmol/L 3.5-5.1 PROTEIN TOTAL 7.1 g/dL 6.4-8.2 SODIUM 143 mmol/L 136-145 CBC WITH AUTO DIFFERENTIAL - 10/18/17 13:31 BASOPHILS RELATIVE PERCENT 0.2 % 0.0-2.5 EOSINOPHILS RELATIVE PERCENT 4.3 % <=5.0 HEMATOCRIT 43.0 % 38.8-50.0 HEMOGLOBIN 14.2 g/dL 13.5-17.5 LYMPHOCYTES RELATIVE PERCENT 26.0 % 22.0-49.0 MEAN CORPUSCULAR HEMOGLOBIN 29.8 pg 26.0-34.0 MEAN CORPUSCULAR HEMOGLOBIN CONC 33.0 g/dL 31.0-37.0 MEAN CORPUSCULAR VOLUME 90.3 fL 81.2-95.1 MONOCYTES RELATIVE PERCENT 7.9 % 2.0-9.0 NEUTROPHILS RELATIVE PERCENT 61.6 % 40.0-75.0 PLATELET COUNT 266 10E9/L 150-450 RED BLOOD CELL COUNT 4.76 10E12/L 4.32-5.72 RED CELL DISTRIBUTION WIDTH 13.7 % 11.8-15.6 [id number] 6.0 10E9/L 3.5-10.5 [id number] 1.60 10E9/L 0.90-2.90 [id number] 0.50 10E9/L 0.30-0.90 [id number] 0.30 10E9/L 0.05-0.50 [id number] 3.60 10E9/L 1.70-7.00 [id number] 0.00 10E9/L 0.00-0.30 CBC WITH AUTO DIFFERENTIAL - 10/18/17 13:31 BASOPHILS RELATIVE PERCENT 0.2 % 0.0-2.5 EOSINOPHILS RELATIVE PERCENT 4.3 % <=5.0 HEMATOCRIT 43.0 % 38.8-50.0 HEMOGLOBIN 14.2 g/dL 13.5-17.5 LYMPHOCYTES RELATIVE PERCENT 26.0 % 22.0-49.0 MEAN CORPUSCULAR HEMOGLOBIN 29.8 pg 26.0-34.0 MEAN CORPUSCULAR HEMOGLOBIN CONC 33.0 g/dL 31.0-37.0 MEAN CORPUSCULAR VOLUME 90.3 fL 81.2-95.1 MONOCYTES RELATIVE PERCENT 7.9 % 2.0-9.0 NEUTROPHILS RELATIVE PERCENT 61.6 % 40.0-75.0 PLATELET COUNT 266 10E9/L 150-450 RED BLOOD CELL COUNT 4.76 10E12/L 4.32-5.72 RED CELL DISTRIBUTION WIDTH 13.7 % 11.8-15.6 [id number] 6.0 10E9/L 3.5-10.5 [id number] 1.60 10E9/L 0.90-2.90 [id number] 0.50 10E9/L 0.30-0.90 [id number] 0.30 10E9/L 0.05-0.50 [id number] 3.60 10E9/L 1.70-7.00 [id number] 0.00 10E9/L 0.00-0.30 Encounters ACCT No. Visit Discharge Status Pt. Type Provider Facility Loc./Unit Complaint Date/Time [id number] 08/27/2017 08/27/2017 LAUREN Johnson [facility] 18:50:00 23:59:59 [facility] [id number] 05/13/2017 05/13/2017 Alex Terrell LAB 4206 15:55:00 23:59:59 nt [facility] [id number] 04/16/2017 04/16/2017 Alex Terrell LAB 0012 16:10:00 23:59:59 Located within [facility] [id number] 03/12/2017 03/12/2017 Alex Terrell LAB 2238 15:57:00 23:59:59 Located within [facility] [id number] 02/22/2017 02/22/2017 Alex Terrell NADIYA 9983 08:03:00 23:59:59 Located within [facility] [id number] 12/10/2016 12/10/2016 CLS Outpatie Kaykay Johnson LAB 6858 11:13:00 23:59:59 nt Víctor Gore [facility] [id number] 09/10/2016 09/10/2016 CLS Outpatie Kaur-Bc Johnson LAB 8075 12:43:00 23:59:59 nt , [facility] [id number] 06/11/2016 06/11/2016 CLS Outpatie Vincent-Bc Johnson LAB 4058 09:36:00 23:59:59 nt , [facility] [id number] 03/15/2016 03/15/2016 CLS Outpatie Chivo Johnson LAB 9137 15:38:00 23:59:59 nt , [facility] [id number] 03/06/2016 03/06/2016 CLS Outdionte MinorAlex UNK 5958 09:45:00 23:59:59 nt [facility] [id number] 12/14/2015 12/14/2015 CLS Outpatie Chivo Johnson LAB 1554 10:43:00 23:59:59 nt , [facility] [id number] 09/20/2015 09/20/2015 CLS Outpatie Chivo Johnson LAB 8317 07:00:00 23:59:59 nt , [facility] [id number] 02/22/2015 02/22/2015 CLS Abdi MinorAlex UNK 5611 17:04:00 23:59:59 nt [facility] [id number] 10/01/2017 Document [id number] 08:37:00 Registra tion [id number] 09/09/2017 Document [id number] 09:50:00 Registra tion [id number] 06/13/2017 Document [id number] 15:52:00 Registra tion [id number] 10/18/2017 10/18/2017 CLS Outpatie [place] EMPOR 01 13:20:21 23:59:59 nt [facility] [id number] 09/18/2017 09/18/2017 CLS Outpatie [place] EMPOR 09 17:05:01 23:59:59 nt [facility] [id number] 09/16/2017 09/16/2017 CLS Outpatie [place] EMP[facility] 28 16:23:49 23:59:59 [facility] [id number] 09/06/2017 09/06/2017 CLS OutZoey Nicholas [place] [facility] 87 08:36:54 23:59:59 nt [facility] [id number] 09/02/2017 09/02/2017 CLS Outpatie [place] EMPOR 21 12:56:47 23:59:59 [facility] [id number] 09/02/2017 09/02/2017 CLS Outpatie [place] EMP[facility] 16 12:56:17 23:59:59 [facility] [id number] 08/30/2017 08/30/2017 CLS WilverpatiZoey Jade [place] EMP[facility] 74 13:08:42 23:59:59 nt [facility] [id number] 07/24/2017 07/24/2017 CLS Outpatie [place] [facility] 06 16:36:01 23:59:59 [facility] [id number] 07/24/2017 07/24/2017 CLS Outpatie SUPRIYA ECHAVARRIA [place] [facility] 18 15:39:55 23:59:59 [facility] [id number] 06/12/2017 06/12/2017 CLS Outpatie [place] EMPOR 38 16:52:56 23:59:59 [facility] [id number] 06/12/2017 06/12/2017 CLS WilverpatiZoey Jade [place] [facility] 12 16:02:25 23:59:59 [facility] [id number] 01/25/2017 01/25/2017 CLS Outpatie [place] EMP[facility] 92 15:31:31 23:59:59 [facility] [id number] 01/25/2017 01/25/2017 CLS Outpatie [place] EMP[facility] 80 15:19:40 23:59:59 [facility] [id number] 01/25/2017 01/25/2017 CLS Zoey Martinez [place] [facility] 86 14:18:00 23:59:59 [facility] [id number] 07/20/2016 07/20/2016 CLS Outpatibaylee MOBLEY [place] [facility] 38 13:49:39 23:59:59 [facility] [id number] 07/20/2016 07/20/2016 CLS Outpatie [place] EMP[facility] 53 13:46:53 23:59:59 [facility] [id number] 04/18/2016 04/18/2016 CLS Outpatie [place] EMPOR 89 11:12:04 23:59:59 [facility] [id number] 04/18/2016 04/18/2016 CLS Outpatie ITZ [place] [facility] 47 10:46:01 23:59:59 [facility] [id number] 03/01/2016 03/01/2016 CLS Outpatie [place] EMP[facility] 93 16:14:05 23:59:59 [facility] [id number] 03/01/2016 03/01/2016 CLS Outpatie [place] EMP[facility] 89 07:53:20 23:59:59 [facility] [id number] 01/18/2016 01/18/2016 CLS Outpatie ITZ [place] [facility]MP[facility] 74 16:33:31 23:59:59 [facility] [id number] 01/18/2016 01/18/2016 CLS Outpatie [place] EMP[facility] 05 16:29:37 23:59:59 [facility] [id number] 08/28/2017 Document 85 18:46:26 Registra tion [id number] 01/30/2017 Document 72 15:46:08 Registra tion [id number] 08/27/2017 08/27/2017 CLS Outpatie Johnson [facility] 18:50:00 23:59:59 [facility] [id number] 10/18/2017 10/18/2017 CLS Outpatie [place] EMPOR 01 13:20:21 23:59:59 [facility] [id number] 09/18/2017 09/18/2017 CLS Outpatie [place] EMP[facility] 09 17:05:01 23:59:59 [facility] [id number] 09/16/2017 09/16/2017 CLS Outpatie [place] [facility] 28 16:23:49 23:59:59 [facility] [id number] 09/06/2017 09/06/2017 CLS Outpatie Zoey MCCARTHY [place] [facility] 87 08:36:54 23:59:59 [facility] [id number] 09/02/2017 09/02/2017 CLS Outpatie [place] EMP[facility] 21 12:56:47 23:59:59 [facility] [id number] 09/02/2017 09/02/2017 CLS Outpatie [place] EMP[facility] 16 12:56:17 23:59:59 nt [facility] [id number] 08/30/2017 08/30/2017 CLS DougZoey Jade [place] [facility] 74 13:08:42 23:59:59 nt [facility] [id number] 07/24/2017 07/24/2017 CLS Outpatie [place] EMP[facility] 06 16:36:01 23:59:59 [facility] [id number] 07/24/2017 07/24/2017 CLS Outpatie SUPRIYA ECHAVARRIA [place] [facility] 18 15:39:55 23:59:59 nt [facility] [id number] 06/12/2017 06/12/2017 CLS Outpatie [place] EMPOR 38 16:52:56 23:59:59 [facility] [id number] 06/12/2017 06/12/2017 CLS Zoey Martinez [place] [facility] 12 16:02:25 23:59:59 nt [facility] [id number] 01/25/2017 01/25/2017 CLS Outpatie [place] EMP[facility] 92 15:31:31 23:59:59 [facility] [id number] 01/25/2017 01/25/2017 CLS Outpatie [place] EMP[facility] 80 15:19:40 23:59:59 [facility] [id number] 01/25/2017 01/25/2017 CLS WilverZoey Nicholas [place] [facility] 86 14:18:00 23:59:59 nt [facility] [id number] 07/20/2016 07/20/2016 CLS Outpatie ITZ [place] E[facility] 38 13:49:39 23:59:59 [facility] [id number] 07/20/2016 07/20/2016 CLS Outpatie [place] EMPOR 53 13:46:53 23:59:59 [facility] [id number] 04/18/2016 04/18/2016 CLS Outpatie [place] EMPOR 89 11:12:04 23:59:59 [facility] [id number] 04/18/2016 04/18/2016 CLS OutpatiTony Daileyont EMPOR 47 10:46:01 23:59:59 nt [facility] [id number] 03/01/2016 03/01/2016 CLS Outpatie [place] EMPOR 93 16:14:05 23:59:59 [facility] [id number] 03/01/2016 03/01/2016 CLS Outpatie [place] EMP[facility] 89 07:53:20 23:59:59 [facility] [id number] 01/18/2016 01/18/2016 CLS Outpatie ITZ [place] [facility] 74 16:33:31 23:59:59 [facility] [id number] 01/18/2016 01/18/2016 CLS Outpatie [place] EMP[facility] 05 16:29:37 23:59:59 [facility] [id number] 08/28/2017 Document 85 18:46:26 Registra tiamiarani [id number] 01/30/2017 Document 72 15:46:08 Registra tion
[2017-11-05] MEDS ORDERED: SALINE FLUSH 10ml SYRINGE IVF PRN (19:41)
--- NOTE | 2017-11-05 21:16 | Emergency Department Report ---
Fever HPI - General Chief Complaint: Fever Stated Complaint: fevers for 5 days, CML Source: patient, family Mode of arrival: ambulatory Limitations: no limitations - History of Present Illness HPI Narrative: Pt presents with a complaint of fever for about 6 days. 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 He presented to the ER in [place] on the , the , and twice on the . Pt has undergone numerous diagnostics yet fever persists. Pt was directed to present here per Dr Huizar. He has received 4 liters of NS, he was sent home with a nebulizer from one of his visits and had been placed on Augmentin and Prednisone yet fever continues with no specific source. PT states he has had a slight cough with some chest heaviness. He has been taking Tylenol and Ibuprofen for fever which resolves for a short period but always returns. He denies N/V/D. He reports times where he feels very hot but denies chills or sweats. He does report a history of anxiety that he takes Lexapro for but admits additional stress with the number of ER visits and lack of diagnosis or admission. MD complaint: fever Onset (ago): day(s) - Related Data Home Medications Medication Instructions Recorded Confirmed Acetaminophen [Acetaminophen Extra 1,000 mg PO Q6HR PRN 11/05/17 11/05/17 Strength] Albuterol HFA Inhaler [Ventolin 1 puff INH DAILY PRN 11/05/17 11/05/17 Hfa 90 mcg/actuation] Budesonide/Formoterol Fumarate 1 puff INH DAILY PRN 11/05/17 11/05/17 [Symbicort 160-4.5 Mcg Inhaler] Cholecalciferol (Vitamin D3) 2,000 unit PO DAILY 11/05/17 11/05/17 [Vitamin D3] Escitalopram [Lexapro] 20 mg PO DAILY 11/05/17 11/05/17 Ibuprofen 400 mg PO Q12HR PRN 11/05/17 11/05/17 Imatinib Mesylate [Gleevec] 400 mg PO DAILY 11/05/17 11/05/17 Levofloxacin [Levaquin] 500 mg PO DAILY 11/05/17 11/05/17 Loratadine [Claritin] 10 mg PO DAILY 11/05/17 11/05/17 PredniSONE [Deltasone 20 mg] 20 mg PO DAILY 11/05/17 11/05/17 Allergies Allergy/AdvReac Type Severity Reaction Status Date / Time doxycycline Allergy Unknown Verified 11/05/17 19:10 Review of Systems All systems: reviewed and negative except as stated Constitutional: Reports: as per HPI Cardiovascular: Reports: as per HPI Respiratory: Reports: as per HPI Gastrointestinal: Reports: as per HPI Neurological: Reports: as per HPI Physical Exam - Limitations Limitations: no limitations - General General appearance: alert, anxious - Normal Exams: Head:: Normocephalic without trauma Eyes:: Pupils are PERRLA w/ EOMI Chest/Respirations:: Clear all cruz, with good airflow, and symmetry bilaterally Cardiovascular:: Regular rate and rhythm, without murmur or gallop, Pulses 2+ all extremities, capillary refill, <2 seconds all extremities Abdomen:: Bowel sounds positive, soft, non-tender, non-distended Musculoskeletal:: No tenderness, or deformity noted, good range of motion, all extremities Integumentary:: No rashes Neurological:: Patient is alert, and oriented, cranial nerves, motor/sensory/ cerebellar, exams w/o gross deficits, to observation Psychiatric:: Patient exhibits, appropriate attention, emotion and affect Fever - MDM Narrative Medical decision making narrative: On pt presentation discussed diagnostics and expectations at length. Charts from [place] ER visits reviewed. Dr Huizar contacted for any additional desired diagnostics. Lab and chest CT reviewed revealing consolidation of the lingula. Findings discussed with Dr Rudd who will admit as inpatient. Findings and plan also discussed with pt who voices understanding. - Differential Diagnosis Likely: fever of unknown origin, community acquired pneumonia, viral infection, sepsis - Lab Data Attestation: I reviewed the patient's lab results. Result diagrams: 11/05/17 20:43 11/05/17 20:43 - Radiology Data Attestation: I reviewed the patient's radiology results. (consolidation in the lingula per V rad) Disposition Clinical Impression: Fever of unknown origin, CML (chronic myeloid leukemia) Disposition: 02 To [facility] [place] Acute Care Condition: Improved Prescriptions: No Action Imatinib Mesylate [Gleevec] 400 mg PO DAILY Budesonide/Formoterol Fumarate [Symbicort 160-4.5 Mcg Inhaler] 1 puff INH DAILY PRN PRN Reason: Respiratory Distress Escitalopram [Lexapro] 20 mg PO DAILY PredniSONE [Deltasone 20 mg] 20 mg PO DAILY Levofloxacin [Levaquin] 500 mg PO DAILY Loratadine [Claritin] 10 mg PO DAILY Ibuprofen 400 mg PO Q12HR PRN PRN Reason: Pain Albuterol HFA Inhaler [Ventolin Hfa 90 mcg/actuation] 1 puff INH DAILY PRN PRN Reason: Respiratory Distress Acetaminophen [Acetaminophen Extra Strength] 1,000 mg PO Q6HR PRN PRN Reason: Pain Cholecalciferol (Vitamin D3) [Vitamin D3] 2,000 unit PO DAILY Referrals: Marcos Alston MD [Primary Care Provider] - Time of Disposition: 23:21 - Seen By: midlevel
[2017-11-05] MEDS ORDERED: IOHEXOL 300mg/ml 75ml INJECTION ONE (21:17)
[2017-11-05] MEDS ORDERED: SALINE FLUSH 10ml SYRINGE ONE (21:18)
[2017-11-05] MEDS ORDERED: ACETAMINOPHEN 500 MG TABLET PO PRN (21:38)
[2017-11-06] MEDS ORDERED: VANCOMYCIN - PHARMACY CONSULT MC ONE (00:19)
[2017-11-06] MEDS ORDERED: PIPERACILLIN/TAZOBACTAM 3.375 GM in NS 100 ML IV ONE (00:19)
[2017-11-06] MEDS ORDERED: MORPHINE SULFATE 4mg INJECTION IVP PRN (00:19)
[2017-11-06] MEDS ORDERED: IBUPROFEN 600 MG TABLET PO PRN (00:19)
[2017-11-06] MEDS ORDERED: HYDROCODONE/APAP 5mg/325mg TABLET PO PRN (00:19)
[2017-11-06] MEDS ORDERED: ONDANSETRON 4 MG/2 ML INJECTION IVP PRN (00:19)
--- NOTE | 2017-11-06 00:43 | History & Physical Report ---
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 The patient is currently under the care of Dr. Weiss. He lives in [facility]. He has had intermittent fever, chills and sweats for the past almost 2 weeks. Last week he was seen by his PCP on Saturday and started on Prednisone and Augmentin. During the Weekend he went into the ED where he had a CT of his chest and abdomen without acute findings. He was started on nebulizer with his augmentin and prednisone. He retuned to the ED on Saturday and was given IVF and IV levaquin and discharged with oral Levaquin. The patient continues to feel poorly and presented back to the ED today @ [place]. He was referred to [facility] to be admitted with Dr. weiss's care. He was evaluated in our ED and CT of the chest with IV contrast demonstrated a lingular infiltrate. He spiked a temp of 102 in the ED. Blood cx have been taken and he will be started on broad spectrum ANB. He describes mild headache , with sinus congestion. He has been unable to clear his sinuses until today with drainage noted. He has a slight sore throat. No ear pain. no neck pain. Cough initially was non productive and just recently over the past 2 hours is bringing up sputum. He has nausea without emesis. He is constipated from the medications He had a ? rash this am that resolved without therapy. Mild myalgias. No focal neuro complaints. At this time admit for farther assessment of febrile illness. 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 [employer] Current residence: Apartment/Private Home Medications Home Medications Medication Instructions Recorded Confirmed Type Acetaminophen [Acetaminophen Extra 1,000 mg PO Q6HR PRN 11/05/17 11/05/17 History Strength] Albuterol HFA Inhaler [Ventolin 1 puff INH DAILY PRN 11/05/17 11/05/17 History Hfa 90 mcg/actuation] Budesonide/Formoterol Fumarate 1 puff INH DAILY PRN 11/05/17 11/05/17 History [Symbicort 160-4.5 Mcg Inhaler] Cholecalciferol (Vitamin D3) 2,000 unit PO DAILY 11/05/17 11/05/17 History [Vitamin D3] Escitalopram [Lexapro] 20 mg PO DAILY 11/05/17 11/05/17 History Ibuprofen 400 mg PO Q12HR PRN 11/05/17 11/05/17 History Imatinib Mesylate [Gleevec] 400 mg PO DAILY 11/05/17 11/05/17 History Levofloxacin [Levaquin] 500 mg PO DAILY 11/05/17 11/05/17 History Loratadine [Claritin] 10 mg PO DAILY 11/05/17 11/05/17 History PredniSONE [Deltasone 20 mg] 20 mg PO DAILY 11/05/17 11/05/17 History Allergies Allergy/AdvReac Type Severity Reaction Status Date / Time doxycycline Allergy Unknown Verified 11/05/17 19:10 Exam Vital Signs: Temperature 102.7 F H 11/05/17 21:44 Pulse Rate 86 11/05/17 22:30 Respiratory Rate 20 11/05/17 21:44 Blood Pressure 134/74 11/05/17 22:30 Pulse Oximetry 96 11/05/17 22:30 Telemetry Rhythm: Sinus Rhythm - Constitutional Present: mild distress, well nourished, well developed, average body habitus, cooperative - Routine HEENT Exam Head: Present: normocephalic, atraumatic Eye: Present: EOMI, PERRL, conjunctivae pink ENT: Present: mucous membranes dry, oropharynx clear, dentition normal, nares patent - Routine Neck Exam Present: supple, full ROM - Routine Respiratory Exam Present: CTA bilaterally - Routine Cardiovascular Exam Present: RRR, no murmur - Routine Abdominal Exam Present: soft, non distended, non tender - Routine Extremities Exam Present: no edema, non tender, full ROM, pulses intact, normal capillary refill - Routine Back/Spine/Pelvis Exam Back/Spine: Present: full ROM - Routine Skin Exam Present: intact, dry. Absent: rash - Routine Neurological Exam Present: alert, oriented X3 - Routine Psychiatric Exam Present: normal affect, normal thought process Results - Labs CBC & Chem 7: 11/05/17 20:43 11/05/17 20:43 Labs: labs reviewed above, pertinent labs will be discussed below CT chest with contrast with lingula infiltrate Assessment and Plan (1) Fever of unknown origin Current visit: Yes Status: Acute (2) CML (chronic myeloid leukemia) Current visit: Yes Status: Acute (3) Pneumonia Current visit: Yes Status: Acute (4) Transaminitis Current visit: Yes Status: Acute (5) Asthma Current visit: Yes Status: Acute Assessment and Plan: 1. febrile illness acute POA: at this time has been on augmentin, prednisone, recent change to levaquin. still spiking temp. cx pending. CT of chest suggest lingula infiltrate and pt with respirtory sx. Will admit and tx as infectious process. Obviously tumor can ppt fever. Consider ID cx 2. community acquired pneumonia acute POA: immune compromised. Have started broad with vanco,zosyn, levaquin. cx pending. consider ID cx. 3. asthma chronic POA: albuterol prn. not exacerbated, not hypoxic 4. CML acute POA: on Glevac. hold acutely, defer to Dr. Weiss 5. transaminitis acute POA: repeat in am with fluids. not clear of process. always keep in mind tic born process this time of the year. Consider tic panel 6. DVT ppx; SCD, lovenox DVT Prophylaxis: SCD's, Lovenox Resuscitation Status: Full Code - Time spent with patient Time with patient PN: 35 minutes - Physician Narrative Physician: To Galloway MD Narrative: Date: 11/06/17 Time: 36 Hospital Course Summary Disclaimer: The visit summary below is not to be considered part of the above Progress Note.
[2017-11-06] MEDS ORDERED: ALBUTEROL 2.5mg/3ml (0.083%) NEB AEROSOL PRN ×2 (00:51→15:38)
[2017-11-06 01:09] VITALS: BMI 26.9
[2017-11-06] MEDS: NS 1,000 ML IV SCH ×2 (02:23→14:32)
--- NOTE | 2017-11-06 07:11 | Pharmacy Consult-Antibiotics ---
Pharmacy Consult-Vancomycin - Laboratory Information WBC 4.6 T/MM3 (4.5-11.0) 11/06/17 04:13 BUN 8.0 MG/DL (9-20) L 11/06/17 04:13 Creatinine 0.9 mg/dL (0.8-1.5) 11/06/17 04:13 Procalcitonin 0.47 NG/ML 11/05/17 20:43 - Consult Information Vancomycin consult noted by Dr Rudd for Mr Hernandez, who has a diagnosis of CAP. Vancomycin 2 grams was given at about midnight. Will begin vancomycin 1.5 grams IV q8h at 0800 this am. Will continue to monitor. Thank you.
--- NOTE | 2017-11-06 08:07 | CT Scan Report ---
Indication: cough, asthma, fever, CML PROCEDURE: CT chest w con: Encounter: Initial Comparison: None Technique: Axial CT images were performed through the chest after the administration of intravenous contrast. Coronal and sagittal two-dimensional reformats. Automated Exposure Control and Iterative Reconstruction dose reducing techniques were utilized. Contrast: Omnipaque 300 74 mL Findings: Small area of consolidation in the perihilar left upper lobe along the fissure. Minimal dependent atelectasis or scarring in the lower lobes. No pleural effusion or pneumothorax. No concerning pulmonary nodules or masses. The central airways are patent. Thyroid gland is normal. No axillary or mediastinal adenopathy. Heart size is normal. Small hiatal hernia. No pericardial effusion. The upper abdomen shows no acute findings. Impression: Minimal perihilar infiltrate in the left upper lobe could represent atelectasis or pneumonia. There is a preliminary report by virtual radiologic. .
[2017-11-06] MEDS: ARFORMOTEROL NEB 15mcg/2ml AEROSOL SCH ×2 (08:18→19:18)
[2017-11-06] MEDS: BUDESONIDE INH.SOLN 0.5mg/2ml NEB AEROSOL SCH ×2 (08:18→19:18)
[2017-11-06] MEDS ORDERED: LEVOFLOXACIN 500 MG/100 ML PREMIX IV SCH (09:00)
--- NOTE | 2017-11-06 09:20 | Infectious Disease Consult ---
Infectious Disease Consult Date of Consultation: 11/06/17 Requesting Physician: Elisa Dejesus Reason for Consultation: antibiotic recs History of Present Illness: Mr. 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 It was stopped sometime last year, but then restarted in August of this year. He reports that he was sick in August with cough and was treated with Augmentin and prednisone and improved. He became sick last with fever up to 102. He had chills, cough, sinus congestion, headache and chest pain. He was seen in his PCP's office last Saturday, and saw the HEAVY DUTY TRUCK MECHANIC. She gave him Augmentin and prednisone again, but he didn't get any better. On Saturday, he slept all day. On Saturday morning, he went to the ED in [place] and had a CXR and blood cultures. He was given a nebulizer. He returned to the ED on Saturday because he still felt "horrible." He had blood cultures repeated, and his antibiotic was changed to levaquin. He continued to feel poorly on Saturday, with dyspnea, cough and feeling faint. He [facility] and they recommended hospitalization here in [place]. He was started on Vanco, Zosyn and levaquin. He is feeling better this morning. I called [place] and blood cultures from the and are negative to date. Per records, he had CT C/A/P in [place] which was negative for acute findings. He had a CT chest here yesterday which showed a small DORA infiltrate. Lactate and procalcitonin were negative. He's not been hypoxic and today he reports that he's feeling better. He denies any insect bites recently. He apparently had a rash on his legs last night, which resolved. He also reports that he had a RVP in [place] that was positive for Rhinovirus. Medications Home Medications Medication Instructions Recorded Confirmed Type Acetaminophen [Acetaminophen Extra 1,000 mg PO Q6HR PRN 11/05/17 11/05/17 History Strength] Albuterol HFA Inhaler [Ventolin 1 puff INH DAILY PRN 11/05/17 11/05/17 History Hfa 90 mcg/actuation] Budesonide/Formoterol Fumarate 1 puff INH DAILY PRN 11/05/17 11/05/17 History [Symbicort 160-4.5 Mcg Inhaler] Cholecalciferol (Vitamin D3) 2,000 unit PO DAILY 11/05/17 11/05/17 History [Vitamin D3] Escitalopram [Lexapro] 20 mg PO DAILY 11/05/17 11/05/17 History Ibuprofen 400 mg PO Q12HR PRN 11/05/17 11/05/17 History Imatinib Mesylate [Gleevec] 400 mg PO DAILY 11/05/17 11/05/17 History Levofloxacin [Levaquin] 500 mg PO DAILY 11/05/17 11/05/17 History Loratadine [Claritin] 10 mg PO DAILY 11/05/17 11/05/17 History PredniSONE [Deltasone 20 mg] 20 mg PO DAILY 11/05/17 11/05/17 History Allergies Allergy/AdvReac Type Severity Reaction Status Date / Time doxycycline Allergy Unknown Verified 11/05/17 19:10 PFSH Patient Stated Medical History Other Cardiology Yes: KNOWN BUNDLE BRANCH BLOCK Asthma Yes Bronchitis Yes Gastroesophageal Reflux Yes Disease Other Hematologic Yes: CML Medical History Updates: CML dx 05 relapse 09/11, asthma, Surgical History: bone marrow bx x 5 Family History: reviewed and non-contributory - Social History Smoking status: Never smoker Substance use type: does not use Alcohol intake frequency: a few times a month Housing: house Household members: spouse, family, children Current occupational status: employed 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 [employer] Current residence: Apartment/Private Home Review of Systems All systems PM: 10-point ROS was reviewed, no additional remarkable complaints except - Constitutional Constitutional: Present: fever(s), headache(s) - EENMT Ears: Present: other (feel "full") - Respiratory Respiratory: Present: cough, dyspnea - Gastrointestinal Gastrointestinal: Absent: diarrhea, nausea, vomiting - Genitourinary Genitourinary: Absent: difficulty urinating - Integumentary/Breasts Integumentary: Present: rash (on legs, now resolved) - Neurological Neurological: Present: headache(s) Exam Vital Signs: Temperature 98.1 F 11/06/17 07:41 Pulse Rate 76 11/06/17 07:41 Respiratory Rate 18 11/06/17 08:18 Blood Pressure 130/76 11/06/17 07:41 Pulse Oximetry 100 11/06/17 08:18 Height/Weight/BMI: Height 1.85 m Weight 90.9 kg Body Mass Index 26.9 - Constitutional Present: no acute distress, well nourished, well developed - Routine HEENT Exam Head: Present: normocephalic, atraumatic Eye: Present: EOMI, PERRL ENT: Present: mucous membranes moist, oropharynx clear - Routine Neck Exam Present: supple - Routine Respiratory Exam Present: CTA bilaterally - Routine Cardiovascular Exam Present: RRR - Routine Abdominal Exam Present: soft, normoactive bowel sounds, non distended, non tender - Routine Extremities Exam Absent: cyanosis, clubbing, edema, joint swelling - Routine Back/Spine/Pelvis Exam Back/Spine: Present: full ROM - Routine Skin Exam Present: intact. Absent: rash - Routine Neurological Exam Present: alert, oriented X3, CN II-XII intact, normal speech. Absent: motor deficit - Routine Psychiatric Exam Present: normal affect, normal thought process Results - Labs CBC & Chem 7: 11/06/17 04:13 11/06/17 04:13 Microbiology Results: Blood cultures 11/04 NGTD Blood cultures 11/05 NGTD Blood cultures 11/05 pending Impression: Sepsis vs SIRS secondary to pulmonary source Pneumonia (small DORA infiltrate on CT) CML on Gleevec Fever, chills, cough, persistent despite Augmentin and Levaquin Mildly elevated LFTs Asthma + Rhinovirus on RVP per patient report Recommendation: I wonder if this is a viral infection, since his fever has persisted despite antibiotics, and there is not much evidence to support a bacterial process ( normal lactate, normal PCT, blood cultures negative). Recommend continuing with the levaquin for now. Will change to po. Will stop the Vancomycin and Zosyn. Continue to monitor. If he continues to feel improved, and remains afebrile for at least 24 hours, would consider discharge. CMV and EBV PCRs are pending.
[2017-11-06] MEDS: ENOXAPARIN 40 MG/0.4 ML INJECTION SQ SCH (09:51)
[2017-11-06] MEDS: ESCITALOPRAM 20 MG TABLET PO SCH (09:52)
--- NOTE | 2017-11-06 09:53 | History & Physical Report ---
History of Present Illness Date: 11/06/17 Chief complaint: Persistent fevers HPI: Jann is a very pleasant 42-year-old male who has been dealing with CML since the age of 29. He had been on oral chemotherapy for many years, and had been dealing with significant side effects from those medications. He was taken off of it last fall for a trial basis, but had to restart it in August of this year. He routinely follows with Dr. Mccracken in [place], but Dr. Mccracken is currently out of the country. He reports that in August, he developed a fairly severe upper respiratory infection. He was treated with Augmentin after being seen by his primary care provider. (He has been treated with Augmentin and Levaquin intermittently for upper respiratory infections when they occurred over the last several years. He reports bronchitis-type infections at least annually.) As he has continued to feel poorly, and became quite a bit worse within the last week, he did see a nurse practitioner in his primary care provider's office. He was started on Augmentin and prednisone for upper respiratory infection, but unfortunately continued to worsen. He was seen in the emergency room in [place] daily over the last 3 days due to severity of his symptoms. He remained quite ill, but was unfortunately not admitted. He contacted the cancer treatment Center in [place] , who recommended he come to [place] to be seen by Dr. Mccracken's partners. Due to his persistent fevers and chronic immunocompromise, he was admitted for further evaluation and treatment. A CT scan done in the ER was consistent with likely pneumonia. He has continued to have significant fever overnight, but reports feeling quite a lot better today. Reports he is feeling significantly better than he has in the last 7 days. He is very appreciate of the care he has received in this facility. Review of Systems All systems PM: 10-point ROS was reviewed, no additional remarkable complaints except Review of systems: ROS significant for persistent fever over 102.0. (He reports a low body temperature around 97 at baseline). He has had sinus congestion and pain, persistent headache. No neck stiffness. Wheezing, shortness of air, chest congestion, nonproductive cough are all positive. Denies any abdominal symptoms. Does not report urinary symptoms. He has had increased anxiety due to his illness. All other systems reviewed as appropriate, found to be negative. Past Medical History Medical History Updates: Chronic CML, diagnosed 2005. Asthma. Anxiety. Cardiac BBB, chronic. TBI age 16 Surgical History: Multiple bone marrow biopsies. Removal of moles. 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[employer]) Current residence: Apartment/Private Home Medications Home Medications Medication Instructions Recorded Confirmed Type Acetaminophen [Acetaminophen Extra 1,000 mg PO Q6HR PRN 11/05/17 11/05/17 History Strength] Albuterol HFA Inhaler [Ventolin 1 puff INH DAILY PRN 11/05/17 11/05/17 History Hfa 90 mcg/actuation] Budesonide/Formoterol Fumarate 1 puff INH DAILY PRN 11/05/17 11/05/17 History [Symbicort 160-4.5 Mcg Inhaler] Cholecalciferol (Vitamin D3) 2,000 unit PO DAILY 11/05/17 11/05/17 History [Vitamin D3] Escitalopram [Lexapro] 20 mg PO DAILY 11/05/17 11/05/17 History Ibuprofen 400 mg PO Q12HR PRN 11/05/17 11/05/17 History Imatinib Mesylate [Gleevec] 400 mg PO DAILY 11/05/17 11/05/17 History Levofloxacin [Levaquin] 500 mg PO DAILY 11/05/17 11/05/17 History Loratadine [Claritin] 10 mg PO DAILY 11/05/17 11/05/17 History PredniSONE [Deltasone 20 mg] 20 mg PO DAILY 11/05/17 11/05/17 History Allergies Allergy/AdvReac Type Severity Reaction Status Date / Time doxycycline Allergy Unknown Verified 11/05/17 19:10 Exam Vital Signs: Temperature 98.1 F 11/06/17 07:41 Pulse Rate 76 11/06/17 07:41 Respiratory Rate 18 11/06/17 08:18 Blood Pressure 130/76 11/06/17 07:41 Pulse Oximetry 100 11/06/17 08:18 Height/Weight/BMI: Height 1.85 m Weight 90.9 kg Body Mass Index 26.9 - Constitutional Present: no acute distress, average body habitus, cooperative - Routine HEENT Exam Head: Present: normocephalic, atraumatic Eye: Present: PERRL, normal accommodation. Absent: EOMI (disconjugate gaze, right eye), scleral injection ENT: Present: mucous membranes moist - Routine Neck Exam Present: supple, trachea midline. Absent: JVD, carotid bruit, tenderness, swelling - Routine Respiratory Exam Present: decreased breath sounds, CTA bilaterally, wheezes (occasional faint expiratory wheeze left upper lung cruz), diminished air movement. Absent: accessory muscle use, dyspnea, rales, respiratory distress - Routine Cardiovascular Exam Present: RRR, S1, S2, no murmur - Routine Abdominal Exam Present: soft, normoactive bowel sounds, non distended, non tender - Routine Extremities Exam Present: no edema, non tender, normal capillary refill - Routine Back/Spine/Pelvis Exam Back/Spine: Present: full ROM. Absent: CVA tenderness - Routine Skin Exam Present: intact, dry, warm - Routine Neurological Exam Present: alert, oriented X3, moving all extremities, normal speech - Routine Psychiatric Exam Present: normal affect, normal thought process, cooperative, good insight, good judgment Results - Labs CBC & Chem 7: 11/06/17 04:13 11/06/17 04:13 - Imaging and Cardiology CT scan - chest Additional comments: CT chest Impression: Minimal perihilar infiltrate in the left upper lobe could represent atelectasis or pneumonia. There is a preliminary report by virtual radiologic. . Assessment and Plan (1) Fever of unknown origin Current visit: Yes Status: Acute (2) CML (chronic myeloid leukemia) Current visit: Yes Status: Acute (3) Pneumonia Current visit: Yes Status: Acute (4) Transaminitis Current visit: Yes Status: Acute (5) Asthma Current visit: Yes Status: Acute Assessment and Plan: Impression: 1. Acute febrile illness 2. Sepsis, resolved at time of admission As evidenced by elevated lactate, tachycardia, hypotension, fever at outside facility 3. Chronic immunocompromise 4. CML 5. CAP 6. Suspected sinusitis 7. Anxiety 8. Asthma 9. Transaminitis Plan: 11/06/17 Agree with inpatient admission due to failed outpatient therapy. Sepsis markers are benign here following admission, the patient remains febrile with a MAXIMUM TEMPERATURE 102.7 His antibiotics have been changed to Levaquin and vancomycin. Dr. Juarez has been consulted. She reports that blood cultures done at [place] were negative at this time. CT scan is concerning for left upper lobe pneumonia, and exam is consistent with that. (Patient reports frequent outpatient therapy with Levaquin and Augmentin in the past) Continue inhaled medication, as well as home Symbicort. He does have diminished air flow, but is not overly wheezy. We'll hold off on further steroids at this time. Order repeat chest x-ray for in the morning. In addition, we will order a CT of the sinuses, as I am concerned that acute sinusitis may be underlying cause of persistent fever and pneumonia may be secondary. He does report significant sinus pain, headache, postnasal drip prior to cough. We'll hold Gleevec for today due to significant infection. Resume as quickly as we can. Consult Dr. Alston. (He does not report that CML has been in remission in the past. He was taken off of oral chemotherapeutics due to side effects for a trial basis last fall to see if his disease remains stable. Restarted in August. Follow this with Dr. Mccracken.) Continue Lexapro for anxiety. He reports Ativan was helpful for him last night to help sleep, this is a not home medication for him routinely. Continue SCDs. Continue IV fluids for today for support of concern for sepsis. Repeat CRP in the morning. Repeat LFTs in the morning. DVT Prophylaxis: SCD's Resuscitation Status: Full Code - Physician Narrative Physician: Elisa Dejesus MD Narrative: Date: 11/06/17 Time: 3:20 PM-I examined the patient independently. I reviewed this chart, the patient history, and the HYDRAULIC ROCKBREAKER OPERATOR's/PA's documented findings as above. We discussed and formulated the assessment and plan as above with the additions below.-Dr. Dejesus Patient was seen this afternoon in his room accompanied by his and son. He states he is feeling better. He has not had any chills since admission. He did feel feverish today after taking a shower and then felt short of breath. Was placed on 1 L of oxygen. Oxygen saturation is currently 99% on 1 L. He states he has been getting breathing treatments intermittently. He does have a history of asthma. He states that he had body aches fevers and chills for about 7 days. Today, he does not have any pain and has had no chills. He did have a diarrheal stool earlier today and that was sent for study for C. difficile. He states he started having a productive cough today. He was recently diagnosed with rhinovirus at an outside facility. Previous CT of the chest and chest x-ray did not show a pneumonia; CT chest this hospitalization showed left upper lobe pneumonia versus atelectasis. CT sinuses show no acute disease. On exam the patient is alert and in no acute distress HEENT reveals sclerae to be anicteric and pupils are equal. Oropharynx is moist. Neck is supple. Chest reveals some scattered rhonchi. No wheezing. Cardiovascular reveals a regular rate and rhythm. Abdomen is soft and nontender. Extremities are free of edema. Impression and plan Acute febrile illness Sepsis-resolved Suspected left upper lobe pneumonia CML Chronic immunocompromise Asthma Transaminitis Plan Dr. Juarez was consulted for infectious disease consultation. She recommended continuing Levaquin and discontinuing vancomycin and cefepime. Will await blood cultures. Blood cultures from [place] are negative so far. Continue breathing treatments Obtain sputum for Gram stain and BAG PRINTER Repeat CBC and CMP tomorrow Consult Dr. Alston regarding CML. He can decide whether to continue Gleevec at this time. DC IV fluids when current bag is empty Hospital Course Summary Disclaimer: The visit summary below is not to be considered part of the above Progress Note. Hospital Course: Impression: 1. Acute febrile illness 2. Sepsis, resolved at time of admission As evidenced by elevated lactate, tachycardia, hypotension, fever at outside facility 3. Chronic immunocompromise 4. CML 5. CAP 6. Suspected sinusitis 7. Anxiety 8. Asthma 9. Transaminitis Plan: 11/06/17 Agree with inpatient admission due to failed outpatient therapy. Sepsis markers are benign here following admission, the patient remains febrile with a MAXIMUM TEMPERATURE 102.7 His antibiotics have been changed to Levaquin and vancomycin. Dr. Juarez has been consulted. She reports that blood cultures done at [place] were negative at this time. CT scan is concerning for left upper lobe pneumonia, and exam is consistent with that. (Patient reports frequent outpatient therapy with Levaquin and Augmentin in the past) Continue inhaled medication, as well as home Symbicort. He does have diminished air flow, but is not overly wheezy. We'll hold off on further steroids at this time. Order repeat chest x-ray for in the morning. In addition, we will order a CT of the sinuses, as I am concerned that acute sinusitis may be underlying cause of persistent fever and pneumonia may be secondary. He does report significant sinus pain, headache, postnasal drip prior to cough. We'll hold Gleevec for today due to significant infection. Resume as quickly as we can. Consult Dr. Alston. (He does not report that CML has been in remission in the past. He was taken off of oral chemotherapeutics due to side effects for a trial basis last fall to see if his disease remains stable. Restarted in August. Follow this with Dr. Mccracken.) Continue Lexapro for anxiety. He reports Ativan was helpful for him last night to help sleep, this is a not home medication for him routinely. Continue SCDs. Continue IV fluids for today for support of concern for sepsis. Repeat CRP in the morning. Repeat LFTs in the morning.
[2017-11-06] MEDS: POLYETHYL GLYCOL 3350 17gm PACKET PO SCH (10:02)
[2017-11-06] MEDS ORDERED: LORATADINE 10 MG TABLET PO SCH (10:15)
--- NOTE | 2017-11-06 11:47 | CT Scan Report ---
Indication: Fever PROCEDURE: CT sinus wo con: Encounter: Initial Comparison: None Technique: Axial CT images were performed through the sinuses without intravenous contrast. Coronal and sagittal two-dimensional reformats. Automated Exposure Control and Iterative Reconstruction dose reducing techniques were utilized. Findings: Metallic artifact from prior dental restorations with a small mucus retention cyst in the left maxillary sinus superiorly. The maxillary sinuses are otherwise clear. Bilateral maxillary antrostomies are widely patent. The left frontal sinus is clear. Small mucus retention cyst in the right frontal sinus which is otherwise clear. The anterior, middle and posterior ethmoid air cells are clear. The sphenoid sinuses are clear. The sphenoid ostia are patent. The mastoid air cells and middle ear cavities are clear. Probable prior nasal septal surgery as well. Advanced degenerative change in the right temporomandibular joint. Impression: No evidence of significant mucosal thickening or acute sinusitis. Prior sinus surgeries. .
[2017-11-06] MEDS: ACETAMINOPHEN 325 MG TABLET PO PRN (14:30)
--- NOTE | 2017-11-06 19:59 | Consult Note ---
Oncology HPI - Data of Consult Consult date: 11/06/17 Requesting Physician: Elisa Dejesus MD Primary Care Provider: Marcos Alston MD - Consult Narrative Reason for consult: cml, fever History of present illness: wm with recurrent cml since 08/2017. Pr was on gleevec from 2715-0600 when gleevec dc'd in remission. CML rx of gleevec begun again 08/2017. Now pt with febrile ilness, chest discomfort. Pt with high transaminases. Pt better after IV vanc and levaquin. Pt now on Po levaquin per ID. Counts nl. LFT's increased Review of Systems - Constitutional Constitutional: Present: fever(s). Absent: anorexia, chills - EENT Eyes: Present: as per HPI Ears: Present: as per HPI Nose: Present: as per HPI Mouth/Throat: Absent: pain, sore throat, loose teeth, caries - Cardiovascular Cardiovascular: Present: chest pain, dyspnea on exertion. Absent: palpitations - Respiratory Respiratory: Present: cough, dyspnea - Gastrointestinal Gastrointestinal: Absent: abdominal pain, change in bowel habits - Genitourinary Genitourinary: Present: as per HPI - Hematologic/Lymphatic Hematologic/Lymphatic: Absent: anemia, easy bleeding, lymphadenopathy PFSH Patient Stated Medical History Other Cardiology Yes: KNOWN BUNDLE BRANCH BLOCK Asthma Yes Bronchitis Yes Gastroesophageal Reflux Yes Disease Other Hematologic Yes: CML Medical History Updates: Chronic CML, diagnosed 2004. Asthma. Anxiety. Cardiac BBB, chronic. TBI age 16 Surgical History: Multiple bone marrow biopsies. Removal of moles. 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 [employer] Current residence: Apartment/Private Home Medications Home Medications Medication Instructions Recorded Confirmed Type Acetaminophen [Acetaminophen Extra 1,000 mg PO Q6HR PRN 11/05/17 11/05/17 History Strength] Albuterol HFA Inhaler [Ventolin 1 puff INH DAILY PRN 18 11/05/17 History Hfa 90 mcg/actuation] Budesonide/Formoterol Fumarate 1 puff INH DAILY PRN 11/05/17 11/05/17 History [Symbicort 160-4.5 Mcg Inhaler] Cholecalciferol (Vitamin D3) 2,000 unit PO DAILY 11/05/17 11/05/17 History [Vitamin D3] Escitalopram [Lexapro] 20 mg PO DAILY 11/05/17 11/05/17 History Ibuprofen 400 mg PO Q12HR PRN 11/05/17 11/05/17 History Imatinib Mesylate [Gleevec] 400 mg PO DAILY 11/05/17 11/05/17 History Levofloxacin [Levaquin] 500 mg PO DAILY 11/05/17 11/05/17 History Loratadine [Claritin] 10 mg PO DAILY 11/05/17 11/05/17 History PredniSONE [Deltasone 20 mg] 20 mg PO DAILY 11/05/17 11/05/17 History Allergies Allergy/AdvReac Type Severity Reaction Status Date / Time doxycycline Allergy Unknown Verified 11/05/17 19:10 Exam Vital signs: Temperature 100.8 F H 11/06/17 15:33 Pulse Rate 84 11/06/17 15:33 Respiratory Rate 16 11/06/17 19:18 Blood Pressure 134/83 11/06/17 15:33 Pulse Oximetry 94 11/06/17 15:33 - Constitutional no acute distress, well nourished - Routine HEENT Exam Head: Present: normocephalic, atraumatic Eye: Present: EOMI, PERRL ENT: Present: mucous membranes moist. Absent: sinus tenderness - Routine Neck Exam Present: supple. Absent: lymphadenopathy - Routine Respiratory Exam Present: CTA bilaterally. Absent: wheezes - Routine Cardiovascular Exam Present: RRR, no murmur - Routine Abdominal Exam Present: soft, normoactive bowel sounds - Routine Extremities Exam Absent: cyanosis, clubbing, edema - Routine Neurological Exam Present: alert, oriented X3 - Routine Psychiatric Exam Present: normal affect, normal thought process Oncology Results - Labs CBC & Chem 7: 11/06/17 04:13 11/06/17 04:13 Labs: Short CBC 11/06/17 Range/Units 04:13 WBC 4.6 (4.5-11.0) T/MM3 Hgb 12.9 L (13.5-17.5) GM/DL Hct 38.1 L (41-53) % Plt Count 184 (130-400) T/MM3 BMP 11/06/17 04:13 Sodium 145 Potassium 3.8 Chloride 107 Carbon Dioxide 27 BUN 8.0 L Creatinine 0.9 Glucose 97 Calcium 8.3 L Liver Function 11/06/17 Range/Units 04:13 Total Bilirubin 0.40 (0.20-1.30) MG/DL AST 87 H (17-59) U/L ALT 141 H (1-50) U/L Alkaline Phosphatase 82 (38-126) U/L Albumin 3.4 L (3.5-5.0) g/dL Assessment and Plan Assessment and Plan: CML recurrent on gleevec. Peripheral blood molecular studies drawn and pending. Doubt progressive CML with current counts Pneumonia-on levaquin rhinovirus Plan antibiotics per ID await molecular studies rtc with Dr. Landin as outpatient consider IgG level and IgG subclasses for recurrent upper resp infections. needs flu vaccine and booster yearly
[2017-11-06] MEDS: IBUPROFEN 200 MG TABLET PO PRN (21:45)
[2017-11-06] MEDS: LORATADINE 10 MG TABLET PO SCH (21:46)
[2017-11-06] MEDS: GLEEVEC 400 MG PO SCH (21:46)
[2017-11-07] MEDS: ALBUTEROL 2.5mg/3ml (0.083%) NEB AEROSOL SCH ×5 (06:10→19:23)
[2017-11-07] MEDS: LEVOFLOXACIN 500 MG TABLET PO SCH (06:52)
[2017-11-07] MEDS: ARFORMOTEROL NEB 15mcg/2ml AEROSOL SCH ×2 (07:12→19:11)
[2017-11-07] MEDS: BUDESONIDE INH.SOLN 0.5mg/2ml NEB AEROSOL SCH ×2 (07:13→19:11)
[2017-11-07] MEDS: NS 1,000 ML IV SCH (07:35)
--- NOTE | 2017-11-07 09:04 | XRay Report ---
INDICATION: Fever, pneumonia PROCEDURE: CHEST 2-VIEWS UPRIGHT (PA & LAT) Encounter: Initial COMPARISON: Chest CT dated November 05, 2017 FINDINGS: Left infrahilar airspace opacity is faintly visible radiographically and may be slightly improved. No new or worsening airspace disease. No pneumothorax or pleural effusion. Heart size, pulmonary vascularity and mediastinal contours are within normal limits. No significant skeletal abnormality. Impression: Interval improvement in the left infrahilar pneumonia. .
[2017-11-07] MEDS: ENOXAPARIN 40 MG/0.4 ML INJECTION SQ SCH (09:19)
[2017-11-07] MEDS: ACETAMINOPHEN 325 MG TABLET PO PRN (09:19)
[2017-11-07] MEDS: POLYETHYL GLYCOL 3350 17gm PACKET PO SCH (09:19)
[2017-11-07] MEDS: ESCITALOPRAM 20 MG TABLET PO SCH (09:19)
--- NOTE | 2017-11-07 11:18 | Progress Note ---
- Date 11/07/17 Subjective: Jann states that he feels so much better today. The rattling in his chest has resolved. He no longer has any chest tightness. He still is a little short of breath, and this is evident during conversation. He tends to sweat quite a bit but this is chronic. Last fever was 1530 yesterday afternoon. He had a bit of a dry throat earlier today and mild right sore throat but that's resolved. He denies any abdominal pain or n/v. Stool was neg for C. diff. Objective Vital signs: Temperature 98.2 F 11/07/17 07:49 Pulse Rate 78 11/07/17 07:49 Respiratory Rate 20 11/07/17 10:01 Blood Pressure 128/77 11/07/17 07:49 Pulse Oximetry 94 11/07/17 07:49 Height/Weight/BMI: Height 1.85 m Weight 88 kg Body Mass Index 26.9 - Constitutional Present: no acute distress, well nourished, well developed - Routine HEENT Exam Head: Present: normocephalic Eye: Present: PERRL. Absent: conjunctival icterus, scleral injection ENT: Present: mucous membranes moist, oropharynx clear (no thrush seen) - Routine Respiratory Exam Present: CTA bilaterally - Routine Cardiovascular Exam Present: RRR, S1, S2 - Routine Abdominal Exam Present: soft, normoactive bowel sounds, non distended, non tender - Routine Extremities Exam Present: no edema - Routine Back/Spine/Pelvis Exam Back/Spine: Present: full ROM - Routine Musculoskeletal Exam Musculoskeletal: Present: moving extremities well - Routine Skin Exam Present: intact, warm. Absent: dry (diaphoretic) - Routine Neurological Exam Present: alert, oriented X3, moving all extremities, normal speech - Routine Psychiatric Exam Present: normal affect, normal thought process, cooperative Results - Labs CBC & Chem 7: 11/07/17 04:28 11/07/17 04:28 Assessment and Plan (1) Fever of unknown origin Current visit: Yes Status: Acute (2) CML (chronic myeloid leukemia) Current visit: Yes Status: Acute (3) Pneumonia Current visit: Yes Status: Acute (4) Transaminitis Current visit: Yes Status: Acute (5) Asthma Current visit: Yes Status: Acute Assessment and Plan: Impression: 1. Acute febrile illness 2. Sepsis, resolved at time of admission As evidenced by elevated lactate, tachycardia, hypotension, fever at outside facility 3. Chronic immunocompromise 4. CML 5. CAP 6. Suspected sinusitis 7. Anxiety 8. Asthma 9. Transaminitis Plan: 11/07/17 Most recent fever was on 11/06/17 at 1533, 100.8 degrees. ID recommends for him to be fever free for at least 24 hours prior to discharge. Continue Levaquin. CXR personally reviewed - improving. CT sinuses was neg for acute sinusitis. WBC decreased to 4.1. CRP up to 55.9. LFTs improving. Dr. Luke has low suspicion for progressive CML given current counts. IgG 792 (low Nml). EBV and CMV PCRs pending. Possible discharge soon. DVT Prophylaxis: SCD's Resuscitation Status: Full Code - Physician Narrative Physician: Elisa Dejesus MD Narrative: Date: 11/07/17 Time: 5:20 PM-I examined the patient independently. I reviewed this chart, the patient history, and the COMPUTER EQUIPMENT INSTALLER's/PA's documented findings as above. We discussed and formulated the assessment and plan as above with the additions below.-Dr. Dejesus The patient was seen in his room this evening. He states he's feeling much better. His breathing is doing better with the breathing treatments and antibiotics. He still feels short of breath with activity. He had fevers yesterday afternoon but none since. He is eating and drinking well. His diarrhea has improved. On exam he is alert and in no acute distress. Chest reveals minimal rhonchi. No wheezing. Cardiovascular reveals a regular rate and rhythm. Abdomen is soft and nontender. Extremities are free of edema. Blood cultures here are negative to date. I did call the [facility] and blood cultures there from November 03, November 04 and November 05 are all negative to date. The patient's C-reactive protein was elevated slightly today at 55. C. difficile was negative. IgG was 792 which is within normal limits. CMV and Caitlin-Garcia virus are pending. Chest x-ray shows interval improvement in left infrahilar pneumonia Impression Fevers-improving Recent rhinovirus Left infrahilar pneumonia-improving on Levaquin Asthma-with possible mild asthma exacerbation CML on Gleevec Diarrhea with negative stool for C. difficile Plan Probable home tomorrow if he continues to be afebrile. We'll check ambulatory oximetry tomorrow Start lactobacillus Hospital Course Summary Disclaimer: The visit summary below is not to be considered part of the above Progress Note. Hospital Course: Impression: 1. Acute febrile illness 2. Sepsis, resolved at time of admission As evidenced by elevated lactate, tachycardia, hypotension, fever at outside facility 3. Chronic immunocompromise 4. CML 5. CAP 6. Suspected sinusitis 7. Anxiety 8. Asthma 9. Transaminitis Plan: 11/06/17 Agree with inpatient admission due to failed outpatient therapy. Sepsis markers are benign here following admission, the patient remains febrile with a MAXIMUM TEMPERATURE 102.7 His antibiotics have been changed to Levaquin and vancomycin. Dr. Juarez has been consulted. She reports that blood cultures done at [place] were negative at this time. CT scan is concerning for left upper lobe pneumonia, and exam is consistent with that. (Patient reports frequent outpatient therapy with Levaquin and Augmentin in the past) Continue inhaled medication, as well as home Symbicort. He does have diminished air flow, but is not overly wheezy. We'll hold off on further steroids at this time. Order repeat chest x-ray for in the morning. In addition, we will order a CT of the sinuses, as I am concerned that acute sinusitis may be underlying cause of persistent fever and pneumonia may be secondary. He does report significant sinus pain, headache, postnasal drip prior to cough. We'll hold Gleevec for today due to significant infection. Resume as quickly as we can. Consult Dr. Alston. (He does not report that CML has been in remission in the past. He was taken off of oral chemotherapeutics due to side effects for a trial basis last fall to see if his disease remains stable. Restarted in August. Follow this with Dr. Mccracken.) Continue Lexapro for anxiety. He reports Ativan was helpful for him last night to help sleep, this is a not home medication for him routinely. Continue SCDs. Continue IV fluids for today for support of concern for sepsis. Repeat CRP in the morning. Repeat LFTs in the morning. 11/07/17 Most recent fever was on 11/06/17 at 1533, 100.8 degrees. ID recommends for him to be fever free for at least 24 hours prior to discharge. Continue Levaquin. CXR personally reviewed - improving. CT sinuses was neg for acute sinusitis. WBC decreased to 4.1. CRP up to 55.9. LFTs improving. Dr. Luke has low suspicion for progressive CML given current counts. IgG 792 (low Nml). EBV and CMV PCRs pending.
--- NOTE | 2017-11-07 13:49 | Progress Note ---
<Barbara Barnard - Last Filed: 11/07/17 14:37> Oncology Subjective Sitting on bedside, with patient. He is alert/oriented. Pleasant affect. States "80% better." Denies fevers, chills. Chronic night sweats persist. He is eating and drinking normally. Diarrhea yesterday, states today loose consistency, no overt diarrhea. Voiding normally. No new concerns General: No fever, chills. + night sweats/chronic Eyes: No redness, no pain, no diplopia ENT: No mouth sores, no trouble swallowing Cardiac: No chest pain no palpitations Pulmonary: No cough, no shortness of breath, no wheezing Abdomen: No pain, no nausea vomiting, + loose stools. : No urgency, frequency, dysuria, or hematuria Musculoskeletal: No arthritis, no myalgias Neurological: No headaches, no focal weakness Skin: No rash, no sores Psychiatric: No anxiety, no depression Exam Vital signs: Temperature 98.6 F 11/07/17 11:55 Pulse Rate 92 11/07/17 11:55 Respiratory Rate 20 11/07/17 11:55 Blood Pressure 132/76 11/07/17 11:55 Pulse Oximetry 98 11/07/17 11:55 - Constitutional no acute distress, well developed, cooperative - Routine HEENT Exam Head: Present: normocephalic Eye: Present: EOMI ENT: Present: mucous membranes moist - Routine Neck Exam Present: supple. Absent: lymphadenopathy - Routine Respiratory Exam Present: CTA bilaterally. Absent: wheezes, crackles - Routine Cardiovascular Exam Present: RRR, no murmur - Routine Abdominal Exam Present: soft, normoactive bowel sounds. Absent: mass - Routine Extremities Exam Present: no edema, full ROM - Routine Skin Exam Present: intact, dry. Absent: rash - Routine Neurological Exam Present: alert, oriented X3, normal speech - Routine Psychiatric Exam Present: normal affect, cooperative Oncology Results - Labs CBC & Chem 7: 11/07/17 04:28 11/07/17 04:28 Labs: Short CBC 11/07/17 Range/Units 04:28 WBC 4.1 L (4.5-11.0) T/MM3 Hgb 13.4 L (13.5-17.5) GM/DL Hct 40.3 L (41-53) % Plt Count 204 (130-400) T/MM3 [facility] 11/07/17 04:28 Sodium 147 H Potassium 4.1 Chloride 107 Carbon Dioxide 29 BUN 8.0 L Creatinine 0.8 Glucose 94 Calcium 8.6 Liver Function 11/07/17 Range/Units 04:28 Total Bilirubin 0.30 (0.20-1.30) MG/DL AST 60 H (17-59) U/L ALT 131 H (1-50) U/L Alkaline Phosphatase 88 (38-126) U/L Albumin 3.6 (3.5-5.0) g/dL - Impressions Date of Exam: 11/07/17 Ordering Provider: Princess Stephens APRN Type of Exam(s): XR chest 2V Reason for Exam(s): Fever, pneumonia INDICATION: Fever, pneumonia PROCEDURE: CHEST 2-VIEWS UPRIGHT (PA & LAT) Encounter: Initial COMPARISON: Chest CT dated November 05, 2017 FINDINGS: Left infrahilar airspace opacity is faintly visible radiographically and may be slightly improved. No new or worsening airspace disease. No pneumothorax or pleural effusion. Heart size, pulmonary vascularity and mediastinal contours are within normal limits. No significant skeletal abnormality. Impression: Interval improvement in the left infrahilar pneumonia. . Assessment and Plan Assessment and Plan: CML recurrent, on gleevec. Peripheral blood molecular studies drawn and pending. Doubt progressive CML with current counts Pneumonia-on levaquin. Clinically/subjectively feeling improved. Diarrhea yesterday; resolved. C-diff was negative. rhinovirus Plan Continue supportive care. Antibiotics per ID. Await molecular studies. Encouraged daily walking/increase fluids/nutritious intake. Patient verbalizes quite pleased w/ care has received here in [place]. - Time Spent With Patient Total time spent is greater than 50% in coordination of care (as documented) at patient's floor/unit and/or counseling patient: less than 15 minutes <Marcos Alston - Last Filed: 11/07/17 19:42> Exam Vital signs: Temperature 98.7 F 11/07/17 18:57 Pulse Rate 105 H 11/07/17 18:57 Respiratory Rate 16 11/07/17 19:14 Blood Pressure 138/80 11/07/17 18:57 Pulse Oximetry 99 11/07/17 19:14 Oncology Results - Labs CBC & Chem 7: 11/07/17 04:28 11/07/17 04:28 Labs: Short CBC 11/07/17 Range/Units 04:28 WBC 4.1 L (4.5-11.0) T/MM3 Hgb 13.4 L (13.5-17.5) GM/DL Hct 40.3 L (41-53) % Plt Count 204 (130-400) T/MM3 BMP 11/07/17 04:28 Sodium 147 H Potassium 4.1 Chloride 107 Carbon Dioxide 29 BUN 8.0 L Creatinine 0.8 Glucose 94 Calcium 8.6 Liver Function 11/07/17 Range/Units 04:28 Total Bilirubin 0.30 (0.20-1.30) MG/DL AST 60 H (17-59) U/L ALT 131 H (1-50) U/L Alkaline Phosphatase 88 (38-126) U/L Albumin 3.6 (3.5-5.0) g/dL Assessment and Plan Assessment and Plan: Patient examined, chart reviewed, I participated in development of the plan of care of this patient with Patricia Barnard. Agree with documentation with Patricia Barnard. Patient with CML that had stopped his Gleevec however he increased his BCR ABL quantification to 0.127 % in August. He restarted Gleevec at that time. Last 5 days have been associated with febrile illness with aches, asthmatic exacerbation and multiple visits to the ER. He has received steroids multiple antibiotics and had a positive rhinovirus screen. He had elevated LFTs and elevated LDH. He was admitted on the evening of 11/05/17 and is now feeling much better. He had molecular studies done on 11/05/17. We are currently awaiting these results. Based on him feeling much better hopefully would be able to have him dismissed tomorrow. We are awaiting outside results of his BCR ABL percent - Time Spent With Patient Total time spent is greater than 50% in coordination of care (as documented) at patient's floor/unit and/or counseling patient: 25 - 35 minutes
[2017-11-07] MEDS: LACTOBACILLUS (15B cfu) CAPSULE PO SCH (17:34)
[2017-11-07] MEDS: LORATADINE 10 MG TABLET PO SCH (21:31)
[2017-11-07] MEDS: GLEEVEC 400 MG PO SCH (21:32)
[2017-11-07] MEDS: IBUPROFEN 200 MG TABLET PO PRN (22:33)
[2017-11-08] MEDS: LEVOFLOXACIN 500 MG TABLET PO SCH (06:12)
[2017-11-08] MEDS: BUDESONIDE INH.SOLN 0.5mg/2ml NEB AEROSOL SCH (07:01)
[2017-11-08] MEDS: ALBUTEROL 2.5mg/3ml (0.083%) NEB AEROSOL SCH ×3 (07:01→15:09)
[2017-11-08 07:14] VITALS: TEMP 96.6
--- NOTE | 2017-11-08 09:01 | Progress Note ---
<AkilBarbara L - Last Filed: 11/08/17 13:46> Oncology Subjective General: No fever, no night sweats Eyes: No redness, no pain, no diplopia ENT: No mouth sores, no trouble swallowing Cardiac: No chest pain no palpitations Pulmonary: No cough, no shortness of breath, no wheezing Abdomen: No pain, no nausea vomiting, no diarrhea or constipation : No urgency, frequency, dysuria, or hematuria Musculoskeletal: No arthritis, no myalgias Neurological: No headaches, no focal weakness Skin: No rash, no sores Psychiatric: No anxiety, no depression Exam Vital signs: Temperature 96.6 F L 11/08/17 07:13 Pulse Rate 79 11/08/17 07:13 Respiratory Rate 16 11/08/17 07:13 Blood Pressure 117/68 11/08/17 07:13 Pulse Oximetry 100 11/08/17 07:13 Oncology Results - Labs CBC & Chem 7: 11/08/17 04:41 11/08/17 04:41 Labs: Short CBC 11/08/17 Range/Units 04:41 WBC 4.6 (4.5-11.0) T/MM3 Hgb 13.6 (13.5-17.5) GM/DL Hct 40.4 L (41-53) % Plt Count 259 (130-400) T/MM3 [facility] 11/08/17 04:41 Sodium 146 Potassium 4.0 Chloride 105 Carbon Dioxide 28 BUN 7.0 L Creatinine 0.8 Glucose 115 H Calcium 9.1 Liver Function 11/08/17 Range/Units 04:41 Total Bilirubin 0.30 (0.20-1.30) MG/DL AST 55 (17-59) U/L ALT 119 H (1-50) U/L Alkaline Phosphatase 98 (38-126) U/L Albumin 3.8 (3.5-5.0) g/dL Assessment and Plan Assessment and Plan: Patient examined, chart reviewed, I participated in development of the plan of care of this patient with Patricia Barnard. Agree with documentation with Patricia Barnard. Patient with CML that had stopped his Gleevec however he increased his BCR ABL quantification to 0.127 % in August. He restarted Gleevec at that time. Last 5 days have been associated with febrile illness with aches, asthmatic exacerbation and multiple visits to the ER. He has received steroids multiple antibiotics and had a positive rhinovirus screen. He had elevated LFTs and elevated LDH. He was admitted on the evening of 11/05/17 and is now feeling much better. He had molecular studies done on 11/05/17. We are currently awaiting these results. Based on him feeling much better hopefully would be able to have him dismissed tomorrow. We are awaiting outside results of his BCR ABL percent - Time Spent With Patient Total time spent is greater than 50% in coordination of care (as documented) at patient's floor/unit and/or counseling patient: <Marcos Alston - Last Filed: 11/15/17 18:05> Exam Vital signs: Temperature 96.6 F L 11/08/17 11:46 Pulse Rate 84 11/08/17 11:46 Respiratory Rate 18 11/08/17 15:09 Blood Pressure 102/67 11/08/17 11:46 Pulse Oximetry 100 11/08/17 15:09 Oncology Results - Labs CBC & Chem 7: 11/08/17 04:41 11/08/17 04:41 Labs: Short CBC 11/08/17 Range/Units 04:41 WBC 4.6 (4.5-11.0) T/MM3 Hgb 13.6 (13.5-17.5) GM/DL Hct 40.4 L (41-53) % Plt Count 259 (130-400) T/MM3 BMP 11/08/17 04:41 Sodium 146 Potassium 4.0 Chloride 105 Carbon Dioxide 28 BUN 7.0 L Creatinine 0.8 Glucose 115 H Calcium 9.1 Liver Function 11/08/17 Range/Units 04:41 Total Bilirubin 0.30 (0.20-1.30) MG/DL AST 55 (17-59) U/L ALT 119 H (1-50) U/L Alkaline Phosphatase 98 (38-126) U/L Albumin 3.8 (3.5-5.0) g/dL Assessment and Plan Assessment and Plan: Patient examined, chart reviewed, fevers have resolved. C-reactive protein is decreasing. LDH is only slightly elevated. WBC does not have changes worrisome for leukemic involvement. Peripheral blood flow cytometry was normal. Will follow-up as outpatient in [place]. I participated in the development of the plan of care of this patient with Patricia Barnard. Laboratory Tests 11/05/17 11/07/17 11/08/17 20:43 04:28 04:41 Lactate Dehydrogenase 696 H C-Reactive Protein 44.0 H 55.9 H 46.9 H Laboratory Tests 11/05/17 11/05/17 11/06/17 20:43 20:43 04:13 WBC 4.9 4.6 Neut % (Auto) 67.4 H 59.7 Eos % (Auto) Baso % (Auto) AST 93 H ALT C-Reactive Protein 44.0 H 11/06/17 11/07/17 11/07/17 04:13 04:28 04:28 WBC 4.1 L Neut % (Auto) 39.2 Eos % (Auto) 3.0 Baso % (Auto) 0.2 AST 87 H 60 H ALT 131 H C-Reactive Protein 55.9 H - Time Spent With Patient Total time spent is greater than 50% in coordination of care (as documented) at patient's floor/unit and/or counseling patient: less than 15 minutes
[2017-11-08] MEDS: ESCITALOPRAM 20 MG TABLET PO SCH (09:26)
[2017-11-08] MEDS: ENOXAPARIN 40 MG/0.4 ML INJECTION SQ SCH (09:26)
[2017-11-08] MEDS: ACETAMINOPHEN 325 MG TABLET PO PRN (09:26)
[2017-11-08] MEDS: LACTOBACILLUS (15B cfu) CAPSULE PO SCH ×2 (09:26→12:38)
[2017-11-08] MEDS: POLYETHYL GLYCOL 3350 17gm PACKET PO SCH (09:26)
--- NOTE | 2017-11-08 09:43 | ID Progress Note ---
Subjective Date: 11/08/17 Subjective: He reports that he's feeling better. Denies any fever for a couple of days. His cough is mostly resolved. He denies any further diarrhea. He is eating well. Exam Vital Signs: Temperature 96.6 F L 11/08/17 07:13 Pulse Rate 79 11/08/17 07:13 Respiratory Rate 16 11/08/17 07:13 Blood Pressure 117/68 11/08/17 07:13 Pulse Oximetry 100 11/08/17 07:13 Height/Weight/BMI: Height 1.85 m Weight 87.9 kg Body Mass Index 26.9 - Constitutional Present: no acute distress, well nourished, well developed - Routine HEENT Exam Head: Present: normocephalic, atraumatic Eye: Present: EOMI, PERRL ENT: Present: mucous membranes moist, oropharynx clear - Routine Neck Exam Present: supple - Routine Respiratory Exam Present: CTA bilaterally - Routine Cardiovascular Exam Present: RRR - Routine Abdominal Exam Present: soft, normoactive bowel sounds, non distended, non tender - Routine Extremities Exam Absent: cyanosis, clubbing, edema - Routine Back/Spine/Pelvis Exam Back/Spine: Present: full ROM - Routine Skin Exam Present: intact. Absent: rash - Routine Neurological Exam Present: alert, oriented X3, CN II-XII intact, normal speech. Absent: motor deficit - Routine Psychiatric Exam Present: normal affect, normal thought process Results - Labs CBC & Chem 7: 11/08/17 04:41 11/08/17 04:41 Labs: Laboratory Tests 11/05/17 11/07/17 20:43 04:28 IgG 792.40 CMV Qnt PCR IU/mL Undetected EBV (Quant-PCR) Quant Undetected Microbiology Results: Blood cultures 11/05/17 negative x 2 days Impression: Sepsis vs SIRS secondary to pulmonary source. Suspect viral pneumonitis. Pneumonia (small DORA infiltrate on CT) CML on Gleevec Fever, chills, cough, persistent despite Augmentin and Levaquin Mildly elevated LFTs Asthma + Rhinovirus on RVP per patient report Recommendation: He appears to be much improved. I think he could be discharged home today. Suspect that this was a viral process, however he could finish out a few more days of Levaquin if he wants to. Discussed with Dr. Inocencia. F/U with ID prn.
[2017-11-08] MEDS: ARFORMOTEROL NEB 15mcg/2ml AEROSOL SCH (09:57)
--- NOTE | 2017-11-08 11:43 | Discharge Summary ---
Discharge Information Date of admission: 11/05/17 23:31 Anticipated date of discharge: 11/08/17 Attending Physician: Luma Pro MD Primary care physician: Marcos Alston MD Consults: Consulting Provider: Ni Juarez Reason For Exam: fevers infectious vs tumor fever, ?pnuemonia Consulting Provider: Marcos Alston Reason For Exam: CML - Discharge Diagnosis (1) Pneumonia Status: Acute Sepsis pulmonary source. Pneumonia (small DORA infiltrate on CT) Rhinovirus URI CML on Gleevec Fever, chills, cough, persistent despite Augmentin and Levaquin Mildly elevated LFTs - improving Asthma - Laboratory Labs: 11/08/17 04:41 11/08/17 04:41 - Microbiology Blood cultures: no growth after 2 days - Radiology Radiology: = = = = = = = = = = = = = = = = = = = = = = = = = = = = = = = = = = = = = = = = = = = = = = = = = = = = = = = = = = = Date of Exam: 11/05/17 PROCEDURE: CT chest with contrast: Findings: Small area of consolidation in the perihilar left upper lobe along the fissure. Minimal dependent atelectasis or scarring in the lower lobes. No pleural effusion or pneumothorax. No concerning pulmonary nodules or masses. The central airways are patent. Thyroid gland is normal. No axillary or mediastinal adenopathy. Heart size is normal. Small hiatal hernia. No pericardial effusion. The upper abdomen shows no acute findings. Impression: Minimal perihilar infiltrate in the left upper lobe could represent atelectasis or pneumonia. = = = = = = = = = = = = = = = = = = = = = = = = = = = = = = = = = = = = = = = = = = = = = = = = = = = = = = = = = = = Date of Exam: 11/06/17 PROCEDURE: CT sinus without contrast: Findings: Metallic artifact from prior dental restorations with a small mucus retention cyst in the left maxillary sinus superiorly. The maxillary sinuses are otherwise clear. Bilateral maxillary antrostomies are widely patent. The left frontal sinus is clear. Small mucus retention cyst in the right frontal sinus which is otherwise clear. The anterior, middle and posterior ethmoid air cells are clear. The sphenoid sinuses are clear. The sphenoid ostia are patent. The mastoid air cells and middle ear cavities are clear. Probable prior nasal septal surgery as well. Advanced degenerative change in the right temporomandibular joint. Impression: No evidence of significant mucosal thickening or acute sinusitis. Prior sinus surgeries. = = = = = = = = = = = = = = = = = = = = = = = = = = = = = = = = = = = = = = = = = = = = = = = = = = = = = = = = = = = Date of Exam: 11/07/17 PROCEDURE: CHEST 2-VIEWS UPRIGHT (PA & LAT) FINDINGS: Left infrahilar airspace opacity is faintly visible radiographically and may be slightly improved. No new or worsening airspace disease. No pneumothorax or pleural effusion. Heart size, pulmonary vascularity and mediastinal contours are within normal limits. No significant skeletal abnormality. Impression: Interval improvement in the left infrahilar pneumonia. 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 He had been on oral chemotherapy for many years, and had been dealing with significant side effects from those medications. He was taken off of it last fall for a trial basis, but had to restart it in August of this year. He routinely follows with Dr. Mccracken in [place], but Dr. Mccracken is currently out of the country. He reports that in August, he developed a fairly severe upper respiratory infection. He was treated with Augmentin after being seen by his primary care provider. (He has been treated with Augmentin and Levaquin intermittently for upper respiratory infections when they occurred over the last several years. He reports bronchitis-type infections at least annually.) As he has continued to feel poorly, and became quite a bit worse within the last week, he did see a nurse practitioner in his primary care provider's office. He was started on Augmentin and prednisone for upper respiratory infection, but unfortunately continued to worsen. He was seen in the emergency room in [place] daily over the last 3 days due to severity of his symptoms. He remained quite ill, but was unfortunately not admitted. He contacted the cancer treatment Center in [place] , who recommended he come to [place] to be seen by Dr. Mccracken's partners. Due to his persistent fevers and chronic immunocompromise, he was admitted for further evaluation and treatment. A CT scan done in the ER was consistent with likely pneumonia. He has continued to have significant fever overnight, but reports feeling quite a lot better today. Reports he is feeling significantly better than he has in the last 7 days. He is very appreciate of the care he has received in this facility. Objective Vital signs: Temperature 96.6 F L 11/08/17 07:13 Pulse Rate 85 11/08/17 10:10 Respiratory Rate 14 11/08/17 11:30 Blood Pressure 117/68 11/08/17 07:13 Pulse Oximetry 99 11/08/17 10:10 Height/Weight/BMI: Height 1.85 m Weight 87.9 kg Body Mass Index 26.9 - Constitutional Present: no acute distress, well nourished, well developed, thin - Routine HEENT Exam Head: Present: normocephalic Eye: Present: PERRL. Absent: conjunctival icterus, scleral injection ENT: Present: mucous membranes moist, oropharynx clear - Routine Respiratory Exam Present: CTA bilaterally - Routine Cardiovascular Exam Present: RRR, S1, S2 - Routine Abdominal Exam Present: soft, normoactive bowel sounds, non distended, non tender - Routine Extremities Exam Present: no edema - Routine Back/Spine/Pelvis Exam Back/Spine: Present: full ROM - Routine Musculoskeletal Exam Musculoskeletal: Present: moving extremities well - Routine Skin Exam Present: intact, warm - Routine Neurological Exam Present: alert, oriented X3, normal speech - Routine Psychiatric Exam Present: normal affect, normal thought process, cooperative Hospital Course This is a general summary of the patient's hospital course. For more details refer to the complete medical record. Hospital course: 11/05/17: Admit, inpatient status for DORA pneumonia Sepsis markers are benign here following admission, the patient remains febrile with Tmax 102.7 Antibiotics have been changed to Levaquin, Zosyn, and vancomycin. Hold Gleevec for today due to significant infection. Consult Dr. Alston. 11/06/17 Dr. Juarez consulted. Antibiotics tapered to Levaquin only. Blood cultures done at [place] negative to date. Continue IV fluids for today for support of concern for sepsis. CT sinuses was neg for acute sinusitis. 11/07/17 Tmax over last 24 hours: 100.8 degrees. ID recommends for him to be fever free for at least 24 hours prior to discharge. WBC decreased to 4.1. CRP up to 55.9. LFTs improving. Dr. Luke has low suspicion for progressive CML given current counts. IgG 792 (low Nml). 11/08/17 EBV and CMV PCRs - undetected. LFTs trending down. WBC 4.6. Afebrile since . Stable for discharge. Continue Levaquin to complete 7-day course. F/U with ID PRN. F/U with Dr. Mccracken in 1-2 weeks. Pt verbalized an understanding. Will monitor for thrush. Time spent with patient: discharge greater than 30 minutes Resuscitation Status: Full Code Discharge Plan - Discharge Disposition Discharge Date: 11/08/17 Disposition: 01 Discharged Home, Self-Care *Condition: Improved Reason For Visit (Visit label in EMR): fever, community acquired pneumonia - Discharge Medications *Discharge Medications: Continue Imatinib Mesylate [Gleevec] 400 mg PO DAILY Budesonide/Formoterol Fumarate [Symbicort 160-4.5 Mcg Inhaler] 1 puff INH DAILY PRN PRN Reason: Respiratory Distress Escitalopram [Lexapro] 20 mg PO DAILY Loratadine [Claritin] 10 mg PO DAILY Ibuprofen 400 mg PO Q12HR PRN PRN Reason: Pain Levofloxacin [Levaquin] 500 mg PO DAILY #4 tab Albuterol HFA Inhaler [Ventolin Hfa 90 mcg/actuation] 1 puff INH DAILY PRN PRN Reason: Respiratory Distress Acetaminophen [Acetaminophen Extra Strength] 1,000 mg PO Q6HR PRN PRN Reason: Pain Cholecalciferol (Vitamin D3) [Vitamin D3] 2,000 unit PO DAILY Discontinued PredniSONE [Deltasone 20 mg] 20 mg PO DAILY - Discharge Packet/Instructions *Diet: Regular. *Activity: As tolerated. *Pain Management/Treatment: Tylenol PRN. *Wound Care: N/A *Expected Signs/Symptoms: Cough & shortness of breath should improve. *Notify Physician if: Recurrent fever, difficulty breathing or chest pain, passing out, extreme weakness, thrush, vomiting or diarrhea, or any new concerns. *During Business Hours Contact: Dr. Mccracken's office. *After Business Hours Contact: The on-call provider for Dr. Mccracken. *Pending Lab/Results: No Pending Lab - Referrals/Follow Up *Referrals/Follow Up: Víctor Mccracken MD [Physician] - 2 Weeks (APPOINTMENT ALREADY MADE.) - Patient Handouts Patient Handouts: Community Acquired Pneumonia (GEN) - Dismissal Complete Discharge Instructions are:: Complete Physician Narrative - Narrative Physician: Luma Pro MD Attestation Narrative: Date: 11/08/17 Time: 1235 I have independently evaluated and examined this patient. I reviewed the chart, the patient's history, and the HOSPITAL EDUCATION COORDINATOR/PA's documented findings as above. We discussed and formulated the assessment and plan as above with additions as below: Jann reports feeling well today and denies dyspnea, sputum, or cough. Respirations are nonlabored with good airflow and clear breath sounds anteriorly and posteriorly. There is no wheezing present. Oxygen saturation on room air at rest was 99% and patient did not desaturate on room air with exercise. Minimum desaturation while walking was 97%. Doing well, stable for discharge. Discussed with Dr. Alston and Dr. Juarez. Will complete Levaquin as planned.
[2017-11-08 11:47] VITALS: BP 102/67; PULSE 84; O2SAT 100
[2017-11-08 15:19] VITALS: RESP 18
== END 2017-11-08 15:49 | disposition home or self-care (01) | DRG 871 ==
LOC: ED 18:51 → EDHOLD 23:31 → SUATTDRO 23:31 → MED 11-06 00:15
PROVIDERS: ADMIT Emergency Medicine; ATTEND Internal Medicine